=== PATIENT | female | born 1995 | race Two or more races ===

== ENCOUNTER 2017-03-06 21:29 | Emergency (ER) | payer OTHER ==
[2017-03-06 21:42] VITALS: BP 108/63; PULSE 79; TEMP 97.9; BMI 24.2
--- NOTE | 2017-03-06 21:44 | PDOC ---
Rapid Medical Evaluation Chief Complaint: Seizure Time Seen by Provider: 03/06/17 21:40 Medical Evaluation: Allergies Allergy/AdvReac Type Severity Reaction Status Date / Time No Known Allergies Allergy Verified 03/06/17 21:38 03/06/17 21:40 I have performed a brief in-person evaluation of this patient. The patient presents with a chief complaint of: Seizure Pertinent physical exam findings: none. I have ordered the following: cbc, cmp, tsh, UA, Urine preg, Urine Tox, EKG. The patient will proceed to the ED for further evaluation. Patient had first seizure 6 months ago after using Molley and Xanax recreationally. Discharge Disposition - Referrals Referrals: Govind Moreno [Primary Care Provider] - - Patient Instructions - Post Discharge Activity
--- NOTE | 2017-03-06 22:26 | PDOC ---
History of Present Illness - General History Source: Patient Exam Limitations: No Limitations - History of Present Illness Initial Comments: 03/06/17 22:56 The patient is a 21 year old female, with a significant past medical history of seizure (First one 07/2016 due to mixing Xanax and Jolynn), who presents to the emergency department with a seizure that occurred today. She reports that she was at home with her family when she had her seizure episode which involved her body and arms shaking before losing consciousness. She notes that the seizure was witnessed by her family and she was unconscious for roughly 2 minutes before awakening in a post-ictal period. EMS was contacted and arrived to the location but patient refused the ambulance. She notes that shortly afterwards she became dizzy and EMS was called once again, this time bringing the patient to the ED. She reports she usually takes 1-2 Xanax daily but during the last week she has not taken the Xanax in an attempt to cut back. She notes that she has been feeling depressed lately and doesn't want to get out of bed because of her depression. The patient denies chest pain, shortness of breath, headache and dizziness. Denies fever, chills, nausea, vomit, diarrhea and constipation. Denies dysuria, frequency, urgency and hematuria. LMP: 2 Weeks ago Allergies: None Past surgical history: None reported Social history: Cigarette use (3 days), Marijuana, xanax and Jolynn <Jani Xiao - Last Filed: 03/07/17 00:52> <Juan Kenney - Last Filed: 03/07/17 01:39> - General Chief Complaint: Seizure Stated Complaint: SEIZURE Time Seen by Provider: 03/06/17 22:21 Past History <Jani Xiao - Last Filed: 03/07/17 00:52> - Past Medical History Asthma: No Cancer: No Cardiac Disorders: No COPD: No Diabetes: No HTN: No Seizures: No Thyroid Disease: No Other medical history: Pt denies - Suicide/Smoking/Psychosocial Hx Smoking Status: No Smoking History: Never smoked Have you smoked in the past 12 months: No Number of Cigarettes Smoked Daily: 3 Information on smoking cessation initiated: No Hx Alcohol Use: No Drug/Substance Use Hx: No Substance Use Type: Marijuana, Prescribed Hx Substance Use Treatment: No <Juan Kenney - Last Filed: 03/07/17 01:39> - Past Medical History Allergies/Adverse Reactions: Allergies Allergy/AdvReac Type Severity Reaction Status Date / Time No Known Allergies Allergy Verified 03/06/17 21:38 Home Medications: Ambulatory Orders NK [No Known Home Medication] 06/24/15 Review of Systems - Review of Systems Able to Perform ROS?: Yes Comments:: 03/06/17 22:54 CONSTITUTIONAL: No fever, no chills, no fatigue EYES: No visual changes ENT: No ear pain, no sore throat CARDIOVASCULAR: No chest pain, no palpitations RESPIRATORY: No cough, no SOB GI: No abdominal pain, no nausea, no vomiting, no constipation, no diarrhea GENITOURINARY: No dysuria, no frequency, no hematuria MUSKULOSKELETAL: No backpain, no joint pain, no myalgias SKIN: No rash NEURO: (+) Seizure. No headache <Jani Xiao - Last Filed: 03/07/17 00:52> *Physical Exam - Vital Signs Last Vital Signs Temp Pulse Resp BP Pulse Ox 97.9 F 79 20 108/63 99 03/06/17 21:38 03/06/17 21:38 03/06/17 21:38 03/06/17 21:38 03/06/17 21:38 - Physical Exam Comments: 03/06/17 22:54 CONSTITUTIONAL: Well-appearing; well-nourished; in no apparent distress HEAD: Normocephalic; atraumatic EYES: PERRL; EOM intact ENMT: External appears normal; normal oropharynx NECK: Supple; non-tender; no cervical lymphadenopathy CARD: Normal S1, S2; no murmurs, rubs, or gallops RESP: Normal chest excursion with respiration; breath sounds clear and equal bilaterally; no wheezes, rhonchi, or rales ABD: Soft, non-distended; non-tender; no palpable organomegaly, no palpable hernias EXT: Normal ROM in all four extremities; non-tender to palpation; distal pulses intact SKIN: Warm, dry, no rash <Jani Xiao - Last Filed: 03/07/17 00:52> - Vital Signs Last Vital Signs Temp Pulse Resp BP Pulse Ox 97.9 F 79 20 108/63 99 03/06/17 21:38 03/06/17 21:38 03/06/17 21:38 03/06/17 21:38 03/06/17 21:38 <Juan Kenney - Last Filed: 03/07/17 01:39> ED Treatment Course - LABORATORY CBC & Chemistry Diagram: 03/06/17 21:50 03/06/17 21:50 - ADDITIONAL ORDERS Additional order review: 03/06/17 21:50 RBC 4.90 D MCV 86.9 MCHC 33.8 RDW 13.6 MPV 10.4 Neutrophils % 78.8 Lymphocytes % 15.5 D Monocytes % 4.8 D Eosinophils % 0.4 D Basophils % 0.5 D <Jani Xiao - Last Filed: 03/07/17 00:52> - LABORATORY CBC & Chemistry Diagram: 03/06/17 21:50 03/06/17 21:50 <Juan Kenney - Last Filed: 03/07/17 01:39> Medical Decision Making - Medical Decision Making 03/07/17 01:35 Patient is a well-appearing 21-year-old female with history polysubstance abuse presented to the ER after a witnessed generalized tonic-clonic seizure that terminated spontaneously. Patient initially refused transport to the ER by EMS but later presented for reevaluation. In the ER, patient is awake and alert, afebrile, with stable vital signs. Physical evaluation reveals abnormality of extraocular movements on the right with incomplete abduction of the right eye looking to the right and exotropia of the right thigh with upward gaze. No further neurological deficits were noted. CT of head showed no evidence of acute intracranial pathology. I suspect the patient's seizure may be related to acute Xanax withdrawal. Patient was advised of the need for admission and neurological evaluation but does not wish to be admitted at this time due to familial obligations. Patient understands the risk of further seizures, head injury and even . Patient will follow up with neurology and PMD. Patient also understands the risk of polysubstance abuse of prescription medication and illegal substances. <Juan Kenney - Last Filed: 03/07/17 01:39> *DC/Admit/Observation/Transfer - Attestations Scribe Attestion: 03/06/17 22:55 Documentation prepared by Jani Xiao, acting as dental assistant medical assistant for Juan Kenney MD <Jani Xiao - Last Filed: 03/07/17 00:52> - Attestations Physician Attestion: 03/07/17 01:33 The documentation was prepared by the scribe under my direct supervision. I have reviewed the documentation which correctly represents the findings, medical decision-making and critical action taken by me. <Juan Kenney - Last Filed: 03/07/17 01:39> Diagnosis at time of Disposition: Seizure, Polysubstance abuse - Discharge Dispostion Disposition: AGAINST MEDICAL ADVICE Condition at time of disposition: Fair - Referrals Referrals: Govind Moreno [Primary Care Provider] - Desmond Major MD [Staff Physician] - - Patient Instructions Printed Discharge Instructions: DI for Seizure (Not Epilepsy/Seizure Disorder) , DI for Drug Abuse and Drug Addiction Additional Instructions: Your leaving against medical advise. You're at risk of further seizures. Do not use other people's prescription medication and do not mix legal and illegal substances. Follow up with neurology. Return immediately for recurrent symptoms. - Post Discharge Activity
[2017-03-06 22:29] LABS: BASOPHIL 0.5 % (0-2.0); EOSINOPHIL 0.4 % (0-4.5); MCH 29.4 pg (25.7-33.7); MCHC 33.8 g/dl (32.0-36.0); MEAN CELL VOLUME 86.9 fl (80-96); MEAN PLT VOLUME 10.4 fl (7.5-11.1); NEUTROPHILS 78.8 % (42.8-82.8); PLATELET COUNT 235 K/MM3 (134-434); RDW 13.6 % (11.6-15.6); WHITE BLOOD COUNT 12.9 K/mm3 (4.0-10.0)
[2017-03-06 23:28] LABS: URINE APPEARANCE CLOUDY; URINE BILIRUBIN NEGATIVE (NEGATIVE); URINE BLOOD 1+ (NEGATIVE); URINE COLOR YELLOW; URINE GLUCOSE (UA) NEGATIVE (NEGATIVE); URINE KETONE NEGATIVE (NEGATIVE); URINE NITRITE NEGATIVE (NEGATIVE); URINE PROTEIN NEGATIVE (NEGATIVE); URINE UROBILINOGEN NEGATIVE mg/dL (0.2-1.0)
[2017-03-06 23:37] LABS: ALBUMIN 4.3 g/dl (3.4-5.0); ALK PHOS 60 U/L (45-117); ANION GAP 8 (8-16); BILIRUBIN,TOTAL 0.5 mg/dL (0.2-1.0); CALCIUM 9.3 mg/dL (8.5-10.1); CO2 27 mmol/L (21-32); CREATININE 0.9 mg/dL (0.55-1.02); GLUCOSE,RANDOM 87 mg/dL (74-106); SGOT/AST 13 U/L (15-37); SGPT/ALT 17 U/L (12-78); TOT PROT 7.6 g/dl (6.4-8.2)
[2017-03-06 23:38] LABS: CALCIUM OXALATE CRYSTALS MODERATE /hpf (NONE SEEN); URINE MUCUS FEW; URINE RBC 10 /hpf (0-3); URINE WBC 36 /hpf (3-5)
[2017-03-07 00:07] LABS: URINE MARIJUANA THC POSITIVE ng/ml (CUTOFF=50)
[2017-03-07 13:34] LABS: URINE LEUK ESTERASE TRACE (NEGATIVE)
== END 2017-03-07 01:45 | disposition left against medical advice (07) ==
LOC: JER 21:29
DX: G40.509 Epileptic seizures related to external causes, not intractable, without status epilepticus (principal); F19.10 Other psychoactive substance abuse, uncomplicated
CPT/HCPCS: 36415; 70450-TC; 80053; 80307; 81003; 81015; 84443; 84703; 85025; 99282-25

== ENCOUNTER 2017-03-07 20:19 | Emergency (ER) | payer OTHER ==
--- NOTE | 2017-03-07 21:02 | PDOC ---
Rapid Medical Evaluation Chief Complaint: Urinary Problem Time Seen by Provider: 03/07/17 21:00 Medical Evaluation: Allergies Allergy/AdvReac Type Severity Reaction Status Date / Time No Known Allergies Allergy Verified 03/06/17 21:38 Pt presents with complaint of : dysuria since 4 pm. denies flank pain,. no fever On brief exam: Patient alert ox3, VSS, no abdominal pain. I have ordered the following: ua, ucx, urine Pt will go to the Emergency Dept for further workup 03/07/17 21:01
[2017-03-07 21:03] VITALS: BP 128/73; PULSE 100; TEMP 97.9; BMI 24.2
--- NOTE | 2017-03-07 22:37 | PDOC ---
History of Present Illness - General Chief Complaint: Urinary Problem Stated Complaint: PAIN Time Seen by Provider: 03/07/17 21:00 History Source: Patient Exam Limitations: No Limitations - History of Present Illness Initial Comments: 03/07/17 22:46 My chief complaint: Sudden onset today of dysuria, frequency urgency and hematuria this afternoon History of present illness: Patient is a 21-year-old female with no significant medical history except for having a grand mal seizure yesterday, in the past she had a seizure 07/2016 for the first time. Patient reports that she was seen here and was told to follow up with neurologist, she signed out AMA. Patient denies any further seizure activity any headaches, fevers, abdominal discomfort flank pain, nausea or vomiting. Patient reports that on few years ago she used to get urinary tract infections has not had one for a long period of time she states. 03/07/17 22:52 Timing/Duration: intermittent Severity: moderate Associated Symptoms: reports: denies symptoms Past History - Past Medical History Allergies/Adverse Reactions: Allergies Allergy/AdvReac Type Severity Reaction Status Date / Time No Known Allergies Allergy Verified 03/06/17 21:38 Home Medications: Ambulatory Orders Nitrofurantoin Monohyd/M-Cryst [Macrobid -] 100 mg PO BID #13 capsule 03/07/17 Phenazopyridine HCl [Pyridium] 200 mg PO TID #5 tablet 03/07/17 Asthma: No Cancer: No Cardiac Disorders: No COPD: No Diabetes: No HTN: No Seizures: Yes (03/05/17 had grand mal seizure for first time) Thyroid Disease: No - Suicide/Smoking/Psychosocial Hx Smoking Status: No Smoking History: Never smoked Have you smoked in the past 12 months: No Number of Cigarettes Smoked Daily: 3 Information on smoking cessation initiated: No Hx Alcohol Use: No Drug/Substance Use Hx: No Substance Use Type: Marijuana, Prescribed Hx Substance Use Treatment: No Review of Systems - Review of Systems Able to Perform ROS?: Yes Constitutional: No: Symptoms Reported HEENTM: No: Symptoms Reported Respiratory: No: Symptoms reported Cardiac (ROS): No: Symptoms Reported ABD/GI: No: Symptoms Reported : Yes: Dysuria, Frequency, Hematuria, Urgency. No: Flank Pain, Incontinence, Pain Musculoskeletal: No: Symptoms Reported Integumentary: No: Symptoms Reported Neurological: No: Symptoms reported *Physical Exam - Vital Signs Last Vital Signs Temp Pulse Resp BP Pulse Ox 97.9 F 100 H 19 128/73 97 03/07/17 21:00 03/07/17 21:00 03/07/17 21:00 03/07/17 21:00 03/07/17 21:00 - Physical Exam General Appearance: Yes: Appropriately Dressed Respiratory/Chest: positive: Lungs Clear, Normal Breath Sounds. negative: Chest Tender, Respiratory Distress Cardiovascular: positive: Regular Rhythm, Regular Rate, S1, S2 Gastrointestinal/Abdominal: positive: Normal Bowel Sounds, Soft. negative: Tender, Organomegaly, Distended, Guarding, Rebound, Tenderness Musculoskeletal: negative: CVA Tenderness, CVA Tenderness (R), CVA Tenderness (L ) Neurologic: positive: Fully Oriented, Alert, Normal Response, Responsive Medical Decision Making - Medical Decision Making 03/07/17 22:48 Patient is a 21-year-old female with no significant medical history except for having a grand mal seizure yesterday, in the past she had a seizure 07/2016 for the first time. Patient reports that she was seen here and was told to follow up with neurologist, she signed out AMA. Patient denies any further seizure activity any headaches, fevers, abdominal discomfort flank pain, nausea or vomiting. Patient reports that on few years ago she used to get urinary tract infections has not had one for a long period of time she states. r/o urinary tract infection PLAN: u/a urine hcg urine C & S 03/07/17 22:53 03/07/17 22:53 03/07/17 23:20 Laboratory Tests 03/07/17 22:41 Urine Color Red Urine Appearance Cloudy Urine pH 6.0 Ur Specific [place] 1.034 Urine Protein 2+ H Urine Glucose (UA) Negative Urine Ketones Trace H Urine Blood 3+ H Urine Nitrite Negative Urine Bilirubin Negative Urine Urobilinogen 2.0 H Ur Leukocyte Esterase Pending Urine WBC (Auto) 914 Urine RBC (Auto) 4573 Ur Epithelial Cells Rare Calcium Oxalate Crystal Few Urine Mucus Many Urine HCG, Qual Negative macrobid 100 mg po now than bid for 7 days pyridium 200 mg po now than 1 tid for 2 days follow up with instructor of education for repeat urine testing at end of treatment *DC/Admit/Observation/Transfer Diagnosis at time of Disposition: Urinary tract infection Qualifiers: Urinary tract infection type: acute cystitis Hematuria presence: with hematuria Qualified Code(s): N30.01 - Acute cystitis with hematuria - Discharge Dispostion Disposition: HOME Condition at time of disposition: Stable - Prescriptions Prescriptions: Nitrofurantoin Monohyd/M-Cryst [Macrobid -] 100 mg PO BID #13 capsule Phenazopyridine HCl [Pyridium] 200 mg PO TID #5 tablet - Referrals Referrals: Govind Moreno [Primary Care Provider] - - Patient Instructions Additional Instructions: Drink a lot a fluids especially cranberry juice if you can purchase pure cranberry juice Return to emergency room if any fever, back pain, pelvic pain or nausea or vomiting or any other symptoms follow-up with your primary care from provider for repeat urine testing at end of treatment Patient voiced understanding of discharge instructions and all questions were answered - Post Discharge Activity
[2017-03-07 23:13] LABS: URINE APPEARANCE CLOUDY; URINE BILIRUBIN NEGATIVE (NEGATIVE); URINE BLOOD 3+ (NEGATIVE); URINE COLOR RED; URINE GLUCOSE (UA) NEGATIVE (NEGATIVE); URINE KETONE TRACE (NEGATIVE); URINE NITRITE NEGATIVE (NEGATIVE); URINE PROTEIN 2+ (NEGATIVE)
[2017-03-07] MEDS ORDERED: PHENAZOPYRIDINE HCL 100 MG TABLET (FP) PO ONE (23:16)
[2017-03-07] MEDS ORDERED: NITROFURANTOIN MACROCRYSTAL 50 MG CAPSULE (FP) ONE (23:17)
[2017-03-07] MEDS ORDERED: PHENAZOPYRIDINE HCL 100 MG TABLET (FP) ONE (23:17)
[2017-03-07 23:19] LABS: CALCIUM OXALATE CRYSTALS FEW /hpf (NONE SEEN); URINE MUCUS MANY; URINE RBC 4573 /hpf (0-3); URINE WBC 914 /hpf (3-5)
[2017-03-07] MEDS ORDERED: NITROFURANTOIN MACROCRYSTAL 50 MG CAPSULE (FP) PO SCH (23:30)
[2017-03-08 09:58] LABS: URINE LEUK ESTERASE 1+ (NEGATIVE)
== END 2017-03-07 23:23 | disposition home or self-care (01) ==
LOC: JERFT 20:19
DX: N30.01 Acute cystitis with hematuria (principal)
CPT/HCPCS: 81003; 81015; 84703; 87086; 99281-25

== ENCOUNTER 2017-07-29 17:25 | Observation (INO) | payer OTHER ==
[2017-07-29 19:08] LABS: BASO % 0.3 % (0-2.0); EOS % 0.5 % (0-4.5); HEMATOCRIT 40.6 % (32.4-45.2); HEMOGLOBIN 13.8 GM/dL (10.7-15.3); LYMPH % 18.4 % (8-40); MCH 29.7 pg (25.7-33.7); MCHC 34.1 g/dl (32.0-36.0); MEAN CELL VOLUME 87.1 fl (80-96); MEAN PLT VOLUME 9.9 fl (7.5-11.1); MONO % 4.9 % (3.8-10.2); NEUT % 75.9 % (42.8-82.8); PLATELET COUNT 234 K/MM3 (134-434); RBC 4.66 M/mm3 (3.60-5.2); RDW 14.1 % (11.6-15.6); WHITE BLOOD COUNT 10.8 K/mm3 (4.0-10.0)
--- NOTE | 2017-07-29 19:22 | PDOC ---
Attending Attestation - Resident Resident Name: Renae Caruso - ED Attending Attestation I have performed the following: I have examined & evaluated the patient, The case was reviewed & discussed with the resident, I agree w/resident's findings & plan, Exceptions are as noted - HPI HPI: 07/29/17 21:21 22y F no pmhx presents with seizure - per family, she had a witnessed tonic clonic seizure, with tongue biting, lasting approx 3 minutes with apparent post ictal period - pt states she takes street xanax daily, and took a half dose today because she 'wasnt feeling well; pt had 2 prior seizruesin the past in july and in feb, all associated with benzo usage. pt currently back at baseline normal neuro exam including normal strength, sensation, no facial droop, cardiac exam: rrr, no m/r/g pulm: clear abd soft nontender suspect benzo withdrawl will d/w neuro possible in patient rehab? - Physicial Exam PE: 07/30/17 08:29 see above - Medical Decision Making 07/30/17 01:01 pts u tox neg for benzos will keep pt for neuro consult as unclear if this seizure is related to benzo withdrawal vs primary seizure event case dw dr zuniga, agree with management Heart Score/ECG Review - ECG Impressions Comment:: 07/30/17 01:01 Twelve-lead EKG was performed and reviewed by me. There is normal sinus rhythm with a normal rate. Rate of 62 The axis is normal no st chnages suggestive of ischemia Impression: Normal twelve-lead EKG
[2017-07-29 19:36] LABS: ALBUMIN 4.3 g/dl (3.4-5.0); ALK PHOS 48 U/L (45-117); ANION GAP 6 (8-16); BILIRUBIN,TOTAL 0.4 mg/dL (0.2-1.0); BLOOD UREA NITROGEN 10 mg/dL (7-18); CHLORIDE 106 mmol/L (98-107); CO2 26 mmol/L (21-32); CREATININE 0.7 mg/dL (0.55-1.02); GLUCOSE,RANDOM 87 mg/dL (74-106); POTASSIUM 3.7 mmol/L (3.5-5.1); SGOT/AST 13 U/L (15-37); SGPT/ALT 13 U/L (12-78); SODIUM 138 mmol/L (136-145); TOT PROT 7.5 g/dl (6.4-8.2)
--- NOTE | 2017-07-29 20:04 | PDOC ---
History of Present Illness - General Chief Complaint: Seizure Stated Complaint: SEIZURE Time Seen by Provider: 07/29/17 19:05 History Source: Patient - History of Present Illness Initial Comments: 07/29/17 20:03 22 year old female presents to our ED after a witnessed seizure. Patient states she last recalls sitting on the couch watching television and next recalls being woken up by father. Patient states her father told her she had whole body shaking for approximately 2-3 minutes with some foaming at the mouth. Denies any known head trauma. Patient states this is her third seizure, her first seizure in July 2016 and a second seizure in February 2017. Patient denies any neurology evaluation. Patient notes daily Xanax use- 2 tablets, unknown dosage, however today she only took one of her pills instead of two. Patient receives her Xanax from a friend and has never been prescribed Xanax by a medical doctor. In addition to daily Xanax use, patient uses marijuana 2-3x weekly. Patient states she has used Xanax intermittently for the last year in order to deal with the depression and stress related to her romantic relationships and notes she stops Xanax while in a relationship and then starts again after she ends the relationships. Not interested in detoxification/rehab at this time. As per EMR, patient evaluated in our ED 02/2017 for seizure at which time CT head showed no acute intracranial pathology and patient discharged with neurology referral. NKDA Surgical: denies Social: daily Xanax, weekly marijuana Past History - Past Medical History Allergies/Adverse Reactions: Allergies Allergy/AdvReac Type Severity Reaction Status Date / Time No Known Allergies Allergy Verified 07/29/17 17:39 Home Medications: Ambulatory Orders NK [No Known Home Medication] 07/29/17 Asthma: No Cancer: No Cardiac Disorders: No COPD: No Diabetes: No HTN: No Seizures: Yes (03/05/17 had grand mal seizure for first time) Thyroid Disease: No - Immunization History Immunization Up to Date: Yes - Suicide/Smoking/Psychosocial Hx Smoking Status: No Smoking History: Never smoked Have you smoked in the past 12 months: No Number of Cigarettes Smoked Daily: 3 Information on smoking cessation initiated: No Hx Alcohol Use: No Drug/Substance Use Hx: No Substance Use Type: Marijuana, Prescribed Hx Substance Use Treatment: No Review of Systems - Review of Systems Constitutional: No: Chills, Fever HEENTM: No: Recent change in vision Respiratory: No: Cough, Shortness of Breath Cardiac (ROS): No: Chest Pain, Lightheadedness, Palpitations, Syncope ABD/GI: No: Constipated, Diarrhea, Nausea, Vomiting : No: Burning, Dysuria *Physical Exam - Vital Signs Last Vital Signs Temp Pulse Resp BP Pulse Ox 98.0 F 67 16 104/65 100 07/29/17 18:10 07/29/17 18:10 07/29/17 18:10 07/29/17 18:10 07/29/17 18:10 - Physical Exam Comments: 07/30/17 02:05 GENERAL: Awake, alert, and fully oriented, in no acute distress HEAD: No signs of trauma, L sided buccal oral lesion, 1 cm - non-hemmorhagic EYES: PERRLA, EOMI, sclera anicteric, conjunctiva clear ENT: Auricles normal inspection, hearing grossly normal, nares patent, oropharynx clear without exudates. Moist mucosa NECK: Nontender, no stepoffs, Normal ROM, supple, no lymphadenopathy, JVD, or masses LUNGS: Breath sounds equal, clear to auscultation bilaterally. No wheezes, and no crackles HEART: Regular rate and rhythm, normal S1 and S2, no murmurs, rubs or gallops ABDOMEN: Soft, nontender, normoactive bowel sounds. No guarding, no rebound. No masses EXTREMITIES: Normal range of motion, no edema. No clubbing or cyanosis. No cords, erythema, or tenderness NEUROLOGICAL: Cranial nerves II through XII intact. 5/5 strength and sensation in all extremities, Normal speech, normal gait, normal cerebellar function SKIN: Warm, Dry, normal turgor, no rashes or lesions noted. ED Treatment Course - LABORATORY CBC & Chemistry Diagram: 07/29/17 17:58 07/29/17 17:58 - ADDITIONAL ORDERS Additional order review: Laboratory Results 07/29/17 17:58 Sodium 138 Potassium 3.7 Chloride 106 Carbon Dioxide 26 Anion Gap 6 L BUN 10 Creatinine 0.7 Creat Clearance w eGFR > 60 Random Glucose 87 Calcium 9.0 Total Bilirubin 0.4 AST 13 L ALT 13 Alkaline Phosphatase 48 Total Protein 7.5 Albumin 4.3 07/29/17 17:58 RBC 4.66 MCV 87.1 MCHC 34.1 RDW 14.1 MPV 9.9 Neutrophils % 75.9 Lymphocytes % 18.4 Monocytes % 4.9 Eosinophils % 0.5 Basophils % 0.3 Medical Decision Making - Medical Decision Making 07/29/17 20:04 22 year old well appearing female with a PMH of polysubstance abuse presents to our ED after witnessed generalized tonic-clonic seizure. Tachycardic @ 101, remainder of VS unremarkable. Neurologically intact with no focal neurologic deficits on physical exam. Patient notes h/o decreased Xanax consumption prior to seizures. Daily Xanax use, not interested in detoxification/rehabilitation at this time. As patient has h/o CT head in 02/2017 negative for acute intracranial pathology, will withhold CT head at this time as clinical suspicion for seizure 2/2 to benzo withdrawal. Urine Tox, basic labs pending. 07/29/17 22:27 Case d/w Dr. Gomez (Neurology) will evaluate patient tomorrow. CBC, CMP unremarkable. Urine toxicology pending. 07/29/17 23:11 Urine toxicology positive for THC, negative for benzos. Will obtain CT head as no clear association between d/c Benzos and seizures. Case d/w Dr. Osborne - will admit patient for obs telemetry. Patient counseled on POC. Will continue to monitor while in ED. *DC/Admit/Observation/Transfer Diagnosis at time of Disposition: Seizure - Discharge Dispostion Condition at time of disposition: Fair Admit: Yes - Referrals - Patient Instructions - Post Discharge Activity
[2017-07-29 21:18] LABS: URINE APPEARANCE CLEAR; URINE BILIRUBIN NEGATIVE (<2.0 mg/dL); URINE BLOOD 1+ (NEGATIVE); URINE COLOR LTYELLOW; URINE GLUCOSE (UA) NEGATIVE (NEGATIVE); URINE KETONE 1+ (NEGATIVE); URINE LEUK ESTERASE NEGATIVE (NEGATIVE); URINE NITRITE NEGATIVE (NEGATIVE); URINE PROTEIN NEGATIVE (NEGATIVE); URINE UROBILINOGEN NEGATIVE mg/dL (0.2-1.0)
[2017-07-29 21:27] LABS: HCG,QUALITATIVE URINE NEGATIVE
[2017-07-29 21:31] LABS: EPI CELLS RARE /HPF (FEW); URINE MUCUS RARE
[2017-07-29 22:48] LABS: URINE AMPHETAMINES NEGATIVE ng/ml (CUTOFF=500)
[2017-07-29 22:49] LABS: COCAINE, UR NEGATIVE ng/ml (CUTOFF=300); METHADONE, UR NEGATIVE ng/ml (CUTOFF=300); OPIATES, URI NEGATIVE ng/ml (CUTOFF=300); PHENCYCLIDINE,URINE NEGATIVE ng/ml (CUTOFF=25); URINE BARBITURATES NEGATIVE ng/ml (CUTOFF=200); URINE BENZODIAZEPINES NEGATIVE ng/ml (CUTOFF=200)
--- NOTE | 2017-07-29 23:17 | PN ---
Teaching Attending Note Name of Resident: Adriana Morales ATTENDING PHYSICIAN STATEMENT I saw and evaluated the patient. I reviewed the resident's note and discussed the case with the resident. I agree with the resident's findings and plan as documented. SUBJECTIVE: 22 F with hx. of polysubstance abuse (Marijuana/Xanax) who presents after a witnessed tonic- clonic seizure by her father. Also notes bitten tongue and 3 minute of a post-ictal state. She gets her Xanax off the street and took only half her usual dose today. She had around a 3 minute post-ictal period. OBJECTIVE: Physical: VS: Vital Signs Period Temp Pulse Resp BP Sys/Mason Pulse Ox Last 24 Hr 98.0 F-98.7 F 65-101 16-20 99-107/50-74 98-100 GEN: NAD, Resting in bed, AA0X3 HEENT: NCAT, PERRL, Throat without erythema or exudates CARD: RRR S1, S2 RESP: CTAB ABD: BSx4, NTD To palpation EXT: - C/C/E CBCD WBC 10.8 K/mm3 (4.0-10.0) H 07/29/17 17:58 RBC 4.66 M/mm3 (3.60-5.2) 07/29/17 17:58 Hgb 13.8 GM/dL (10.7-15.3) 07/29/17 17:58 Hct 40.6 % (32.4-45.2) 07/29/17 17:58 MCV 87.1 fl (80-96) 07/29/17 17:58 MCHC 34.1 g/dl (32.0-36.0) 07/29/17 17:58 RDW 14.1 % (11.6-15.6) 07/29/17 17:58 Plt Count 234 K/MM3 (134-434) 07/29/17 17:58 MPV 9.9 fl (7.5-11.1) 07/29/17 17:58 CMP Sodium 138 mmol/L (136-145) 07/29/17 17:58 Potassium 3.7 mmol/L (3.5-5.1) 07/29/17 17:58 Chloride 106 mmol/L (98-107) 07/29/17 17:58 Carbon Dioxide 26 mmol/L (21-32) 07/29/17 17:58 Anion Gap 6 (8-16) L 07/29/17 17:58 BUN 10 mg/dL (7-18) 07/29/17 17:58 Creatinine 0.7 mg/dL (0.55-1.02) 07/29/17 17:58 Creat Clearance w eGFR > 60 (>60) 07/29/17 17:58 Random Glucose 87 mg/dL (74-106) 07/29/17 17:58 Calcium 9.0 mg/dL (8.5-10.1) 07/29/17 17:58 Total Bilirubin 0.4 mg/dL (0.2-1.0) 07/29/17 17:58 AST 13 U/L (15-37) L 07/29/17 17:58 ALT 13 U/L (12-78) 07/29/17 17:58 Alkaline Phosphatase 48 U/L (45-117) 07/29/17 17:58 Total Protein 7.5 g/dl (6.4-8.2) 07/29/17 17:58 Albumin 4.3 g/dl (3.4-5.0) 07/29/17 17:58 CT HEAD: PENDING EKG:NSR CXR: PENDING ASSESSMENT AND PLAN: 22 F who presents after witness seizure 1.) Seizure - Most likley due to BZD withdrawl - Detox consult - FU CT HEAD - Neuro Consult - TSH - Seizure Percautions 2.) Dvt Ppx - SCDs Place in Obs
--- NOTE | 2017-07-30 00:18 | MSN ---
Admitting History and Physical - Admission Chief Complaint: seizure History of Present Illness: Faviola Aleman is a 22 year old female with no significant past medical history who presents to the hospital after having a witnessed seizure in her home. Patient had 2 prior episodes with the last episode in February 2017. Patient stated that she takes 2 Xanax bars daily but this morning she only took 1. Patient stated that this morning she felt feverish which is similar to how she felt last time she had a seizure and decided to stay home. The episode was witnessed by the father. Patient had bit her cheek and had tonic-clonic movements for 3 minutes. Patient did not have any bowel or bladder incontinence during the episode. Patient denied any inciting events prior to the seizure, lightheadedness, palpitations, shortness of breath, dizziness. Patient currently endorses a headache. Denies current cp, sob, abd pain, dysuria, urgency, frequency, fevers, chills, n/v/c/d, dizziness, lightheadedness. History Source: Patient Limitations to Obtaining History: No Limitations - Past Medical History [employer]IST: Yes: Seizure (2 prior) ...: No - Past Surgical History Past Surgical History: Yes: None - Smoking History Smoking history: Never smoked Have you smoked in the past 12 months: No - Alcohol/Substance Use Hx Alcohol Use: No History of Substance Use: reports: Marijuana (3 blunts/day), Tranquilizers ( Xanax daily 2 bars) - Social History ADL: Independent Occupation: unemployed History of Recent Travel: No Home Medications - Allergies Allergies/Adverse Reactions: Allergies Allergy/AdvReac Type Severity Reaction Status Date / Time No Known Allergies Allergy Verified 07/29/17 17:39 - Home Medications Home Medications: Ambulatory Orders NK [No Known Home Medication] 07/29/17 Family Disease History - Family Disease History Family Disease History: Diabetes: Father Review of Systems - Review of Systems Constitutional: reports: No Symptoms Eyes: reports: No Symptoms HENT: reports: No Symptoms Neck: reports: No Symptoms Cardiovascular: reports: No Symptoms Respiratory: reports: No Symptoms Gastrointestinal: reports: No Symptoms Genitourinary: reports: No Symptoms Breasts: reports: No Symptoms Reported Musculoskeletal: reports: No Symptoms Integumentary: reports: No Symptoms Neurological: reports: Headache Endocrine: reports: No Symptoms Hematology/Lymphatic: reports: No Symptoms Psychiatric: reports: No Symptoms Physical Examination Vital Signs: Vital Signs Temperature 98.0 F 07/29/17 18:10 Pulse Rate 65 07/29/17 23:03 Respiratory Rate 18 07/29/17 23:03 Blood Pressure 99/50 07/29/17 23:03 O2 Sat by Pulse Oximetry (%) 99 07/29/17 23:03 Constitutional: Yes: Well Nourished, No Distress, Calm Eyes: Yes: WNL, Conjunctiva Clear, EOM Intact HENT: Yes: Normocephalic, Other (laceration in the R cheek due to biting from seizure episode) Neck: Yes: WNL, Supple, Trachea Midline Cardiovascular: Yes: WNL, Regular Rate and Rhythm, S1, S2 Respiratory: Yes: WNL, Regular, CTA Bilaterally Gastrointestinal: Yes: WNL, Normal Bowel Sounds, Soft Renal/: No: Musculoskeletal: Yes: WNL Extremities: Yes: WNL Edema: No Peripheral Pulses WNL: Yes Peripheral Pulses: Left Radial: 2+, Right Radial: 2+, Left Doralis Pedis: 2+, Right Dorsalis Pedis: 2+ Integumentary: Yes: WNL Neurological: Yes: WNL, Alert, Oriented, Cran Nerves II-XII Intact. No: Loss of Sensation, Numbness, Tingling ...Motor Strength: WNL Psychiatric: Yes: WNL, Alert, Oriented Labs: CBC, BMP 07/29/17 17:58 07/29/17 17:58 Problem List - Problems (1) Polysubstance abuse Code(s): F19.10 - OTHER PSYCHOACTIVE SUBSTANCE ABUSE, UNCOMPLICATED (2) Seizure Code(s): R56.9 - UNSPECIFIED CONVULSIONS Assessment/Plan Patient is a 22y/o female with no significant past medical history who presented after having a witnessed tonic-clonic seizure. Seizure - provoked due to benzodiazepine withdrawl vs. epilepsy - urine toxicology only positive for THC - Head CT ordered - Sodium, liver enzymes within normal limits - Mg, B12, folate, Phosphorus, TSH ordered - Neuro assessment q2h, seizure protocol - EKG ordered - Neurology consulted, Dr. Gomez, recs appreciated F/E/N - regular diet - electrolytes within normal limits - replete as necessary DVT PPx - early ambulation Disposition - observation admission
--- NOTE | 2017-07-30 00:31 | HP ---
CHIEF COMPLAINT: seizure HISTORY OF PRESENT ILLNESS: Patient is a 22 yo F with a history of polysubstance abuse (marijuana, xanax) presented to the ED after a witnessed tonic-clonic seizure by her father lasting 2-3 minutes. Patient said she bit the inside of her cheek. She mentions feeling warm this morning before having the seizure. She does not remember having a seizure. Patient says she was in post-ictal state for about 3 minutes. Patient usually takes xanax twice daily and today only took half her dose. Patient has had 2 similar episodes in the past year. She said she was withdrawing from xanax the previous 2 times she had the seizures (last seizure 02/22). Patient denies chest pain, sob, nausea, vomiting, loss of bladder control, dizziness, lightheadedness. Recent Travel: denies PAST MEDICAL HISTORY: none PAST SURGICAL HISTORY: n/a Social History: Smoking: denied Alcohol: denied Drugs: 3 blunts of marijuana a day Family History: Allergies No Known Allergies Allergy (Verified 07/29/17 17:39) HOME MEDICATIONS: Home Medications Medication Instructions Recorded NK [No Known Home Medication] 07/29/17 REVIEW OF SYSTEMS CONSTITUTIONAL: Absent: fever, chills, diaphoresis, generalized weakness, malaise, loss of appetite, weight change HEENT: Absent: rhinorrhea, nasal congestion, throat pain, throat swelling, difficulty swallowing, mouth swelling, ear pain, eye pain, visual changes CARDIOVASCULAR: Absent: chest pain, syncope, palpitations, irregular heart rate, lightheadedness , peripheral edema RESPIRATORY: Absent: cough, shortness of breath, dyspnea with exertion, orthopnea, wheezing, stridor, hemoptysis GASTROINTESTINAL: Absent: abdominal pain, abdominal distension, nausea, vomiting, diarrhea, constipation, melena, hematochezia GENITOURINARY: Absent: dysuria, frequency, urgency, hesitancy, hematuria, flank pain, genital pain MUSCULOSKELETAL: Absent: myalgia, arthralgia, joint swelling, back pain, neck pain SKIN: Absent: rash, itching, pallor HEMATOLOGIC/IMMUNOLOGIC: Absent: easy bleeding, easy bruising, lymphadenopathy, frequent infections ENDOCRINE: Absent: unexplained weight gain, unexplained weight loss, heat intolerance, cold intolerance NEUROLOGIC: headache, seizure Absent: focal weakness or paresthesias, dizziness, unsteady gait, mental status changes, bladder or bowel incontinence PHYSICAL EXAMINATION Vital Signs - 24 hr 07/29/17 07/29/17 07/29/17 17:39 18:10 23:03 Temperature 98.7 F 98.0 F Pulse Rate 101 H Pulse Rate [ 67 65 Right] Respiratory 20 16 18 Rate Blood Pressure 107/74 Blood Pressure 104/65 99/50 [Right Arm] O2 Sat by Pulse 98 100 99 Oximetry (%) GENERAL: a/o x 3, laying in bed comfortably on her phone HEAD: Normal with no signs of trauma. EYES: Pupils equal, round and reactive to light, extraocular movements intact, sclera anicteric, conjunctiva clear. No lid lag. EARS, NOSE, THROAT: bleeding right cheek inside mouth NECK: Normal range of motion, supple without lymphadenopathy, JVD, or masses. LUNGS: Breath sounds equal, clear to auscultation bilaterally. No wheezes, and no crackles. No accessory muscle use. HEART: Regular rate and rhythm, normal S1 and S2 without murmur, rub or gallop. ABDOMEN: Soft, nontender, not distended, normoactive bowel sounds, no guarding, no rebound, no masses. MUSCULOSKELETAL: Normal range of motion at all joints. No bony deformities or tenderness. No CVA tenderness. UPPER EXTREMITIES: 2+ pulses, warm, well-perfused. No cyanosis. No clubbing. No peripheral edema. LOWER EXTREMITIES: 2+ pulses, warm, well-perfused. No calf tenderness. No peripheral edema. NEUROLOGICAL: Cranial nerves II-XII intact. Normal speech. Normal gait. PSYCHIATRIC: Cooperative. Good eye contact SKIN: Warm, dry, normal turgor, no rashes or lesions noted, normal capillary refill. Laboratory Results - last 24 hr 07/29/17 07/29/17 07/29/17 17:58 17:58 17:58 WBC 10.8 H RBC 4.66 Hgb 13.8 Hct 40.6 MCV 87.1 MCH 29.7 MCHC 34.1 RDW 14.1 Plt Count 234 MPV 9.9 Neutrophils % 75.9 Lymphocytes % 18.4 Monocytes % 4.9 Eosinophils % 0.5 Basophils % 0.3 Sodium 138 Potassium 3.7 Chloride 106 Carbon Dioxide 26 Anion Gap 6 L BUN 10 Creatinine 0.7 Creat Clearance w eGFR > 60 Random Glucose 87 Calcium 9.0 Total Bilirubin 0.4 AST 13 L ALT 13 Alkaline Phosphatase 48 Total Protein 7.5 Albumin 4.3 Serum , Qual Negative Urine Color Urine Appearance Urine pH Ur Specific [place] Urine Protein Urine Glucose (UA) Urine Ketones Urine Blood Urine Nitrite Urine Bilirubin Urine Urobilinogen Ur Leukocyte Esterase Urine WBC (Auto) Urine RBC (Auto) Ur Epithelial Cells Urine Mucus Urine HCG, Qual Opiates Screen Methadone Screen Barbiturate Screen Phencyclidine Screen Ur Amphetamines Screen MDMA (Ecstasy) Screen Benzodiazepines Screen Cocaine Screen U Marijuana (THC) Screen 07/29/17 07/29/17 20:35 22:11 WBC RBC Hgb Hct MCV MCH MCHC RDW Plt Count MPV Neutrophils % Lymphocytes % Monocytes % Eosinophils % Basophils % Sodium Potassium Chloride Carbon Dioxide Anion Gap BUN Creatinine Creat Clearance w eGFR Random Glucose Calcium Total Bilirubin AST ALT Alkaline Phosphatase Total Protein Albumin Serum , Qual Urine Color Ltyellow Urine Appearance Clear Urine pH 6.0 Ur Specific [place] 1.023 Urine Protein Negative Urine Glucose (UA) Negative Urine Ketones 1+ H Urine Blood 1+ H Urine Nitrite Negative Urine Bilirubin Negative Urine Urobilinogen Negative Ur Leukocyte Esterase Negative Urine WBC (Auto) <1 Urine RBC (Auto) 4 Ur Epithelial Cells Rare Urine Mucus Rare Urine HCG, Qual Negative Opiates Screen Negative Methadone Screen Negative Barbiturate Screen Negative Phencyclidine Screen Negative Ur Amphetamines Screen Negative MDMA (Ecstasy) Screen Negative Benzodiazepines Screen Negative Cocaine Screen Negative U Marijuana (THC) Screen Positive ASSESSMENT/PLAN: 22 yo F with a history of polysubstance abuse (marijuana, xanax) presented to the ED after a witnessed tonic-clonic seizure #Seizure -likely withdrawal from benzo -neuro checks q2 hours -CT head -Neuro consulted -TSH, b12, folate -no AED at this time until further reccs from neuro #Benzo abuse -refusing detox #FEN -No iv fluids -WNL -Regular diet #PPx -EAB Visit type - Emergency Visit Emergency Visit: Yes ED Registration Date: 07/29/17 Care time: The patient presented to the Emergency Department on the above date and was hospitalized for further evaluation of their emergent condition. - New Patient This patient is new to me today: Yes Date on this admission: 07/30/17 - Critical Care Critical Care patient: No Hospitalist Screening - Colonoscopy Questionnaire Colonoscopy Questionnaire: Colonoscopy Questionnaire - Patient: 50 - 75 years old and never had a screening colonoscopy: Unknown History of colon or rectal polyps, or CA: Unknown History of IBD, Crohn's disease or UC: Unknown History of abdominal radiation therapy as a child: Unknown - Relative: 1 with colon or rectal CA, or polyps at age 60 or younger: Unknown Colon or rectal CA diagnosed at age 45 or younger: Unknown Multiple relatives with colon or rectal CA: Unknown - Outcome: Screening Result: Negative Screen
[2017-07-30 06:26] VITALS: BMI 21.1
[2017-07-30 06:47] LABS: HEMATOCRIT 38.5 % (32.4-45.2); HEMOGLOBIN 13.2 GM/dL (10.7-15.3); MCHC 34.2 g/dl (32.0-36.0); MEAN CELL VOLUME 87.6 fl (80-96); MEAN PLT VOLUME 10.4 fl (7.5-11.1); PLATELET COUNT 218 K/MM3 (134-434); RDW 14.1 % (11.6-15.6); WHITE BLOOD COUNT 9.9 K/mm3 (4.0-10.0)
[2017-07-30 07:14] LABS: ALBUMIN 3.6 g/dl (3.4-5.0); ANION GAP 6 (8-16); BLOOD UREA NITROGEN 12 mg/dL (7-18); CALCIUM 8.4 mg/dL (8.5-10.1); CHLORIDE 107 mmol/L (98-107); CO2 25 mmol/L (21-32); CREATININE 0.7 mg/dL (0.55-1.02); GLUCOSE,RANDOM 85 mg/dL (74-106); MAGNESIUM 2.2 mg/dL (1.8-2.4); POTASSIUM 3.8 mmol/L (3.5-5.1); SGOT/AST 13 U/L (15-37); SGPT/ALT 12 U/L (12-78); SODIUM 138 mmol/L (136-145)
[2017-07-30 07:24] LABS: ALK PHOS 42 U/L (45-117); BILIRUBIN,TOTAL 0.6 mg/dL (0.2-1.0); TOT PROT 6.6 g/dl (6.4-8.2)
[2017-07-30] MEDS ORDERED: chlordiazePOXIDE HCL 25 MG CAPSULE PO PRN (07:35)
[2017-07-30] MEDS ORDERED: chlordiazePOXIDE HCL 25 MG CAPSULE PO ONE (07:35)
--- NOTE | 2017-07-30 09:39 | CONSULT ---
Consult - text type - Consultation Consultation Note: Neurology CHIEF COMPLAINT: seizure HISTORY OF PRESENT ILLNESS: Patient is a 22 yo F with a history of polysubstance abuse (marijuana, xanax) presented to the ED after a witnessed tonic-clonic seizure by her father lasting 2-3 minutes. REportedly, this is her third event. All of them have been in the context of benzo withdrawal according to the patient. Utox did not show benzo though patient reports last use was one day prior. Had an extensive conversation about not mixing toxic substances with medications (MJ, other opioids). Believes she has Xanax issue under control and can stop taking it but each time she ends up going back on it. Reported recent "heartbreak" as trigger and informed her other stressors may trigger recurrences and encouraged at least consult with psych and/or wildlife removal specialist. Seems to be in denial of her possible addiction. Neurologically, does not seem to be organic seizure disorder. Would not want to expose her to toxicity of AEDS as her events are triggered by medication abuse/withdrawal. Focus this underlying etiology would be most effective. Further, AEDS not likely to prevent withdrawal seizures. CT head reviewed and without acute changes. Recent Travel: denies PAST MEDICAL HISTORY: none PAST SURGICAL HISTORY: n/a Social History: Smoking: denied Alcohol: denied Drugs: 3 blunts of marijuana a day Family History: Allergies No Known Allergies Allergy (Verified 07/29/17 17:39) HOME MEDICATIONS: Home Medications Medication Instructions Recorded NK [No Known Home Medication] 07/29/17 REVIEW OF SYSTEMS CONSTITUTIONAL: Absent: fever, chills, diaphoresis, generalized weakness, malaise, loss of appetite, weight change HEENT: Absent: rhinorrhea, nasal congestion, throat pain, throat swelling, difficulty swallowing, mouth swelling, ear pain, eye pain, visual changes CARDIOVASCULAR: Absent: chest pain, syncope, palpitations, irregular heart rate, lightheadedness , peripheral edema RESPIRATORY: Absent: cough, shortness of breath, dyspnea with exertion, orthopnea, wheezing, stridor, hemoptysis GASTROINTESTINAL: Absent: abdominal pain, abdominal distension, nausea, vomiting, diarrhea, constipation, melena, hematochezia GENITOURINARY: Absent: dysuria, frequency, urgency, hesitancy, hematuria, flank pain, genital pain MUSCULOSKELETAL: Absent: myalgia, arthralgia, joint swelling, back pain, neck pain SKIN: Absent: rash, itching, pallor HEMATOLOGIC/IMMUNOLOGIC: Absent: easy bleeding, easy bruising, lymphadenopathy, frequent infections ENDOCRINE: Absent: unexplained weight gain, unexplained weight loss, heat intolerance, cold intolerance NEUROLOGIC: headache, seizure Absent: focal weakness or paresthesias, dizziness, unsteady gait, mental status changes, bladder or bowel incontinence PHYSICAL EXAMINATION Vital Signs Temperature 98.2 F 07/30/17 05:46 Pulse Rate 81 07/30/17 05:46 Respiratory Rate 20 07/30/17 05:46 Blood Pressure 99/59 07/30/17 05:46 O2 Sat by Pulse Oximetry (%) 99 07/30/17 02:20 GENERAL: a/o x 3, laying in bed comfortably on her phone HEAD: Normal with no signs of trauma. EYES: Pupils equal, round and reactive to light, extraocular movements intact, sclera anicteric, conjunctiva clear. No lid lag. EARS, NOSE, THROAT: bleeding right cheek inside mouth NECK: Normal range of motion, supple without lymphadenopathy, JVD, or masses. LUNGS: Breath sounds equal, clear to auscultation bilaterally. No wheezes, and no crackles. No accessory muscle use. HEART: Regular rate and rhythm, normal S1 and S2 without murmur, rub or gallop. ABDOMEN: Soft, nontender, not distended, normoactive bowel sounds, no guarding, no rebound, no masses. MUSCULOSKELETAL: Normal range of motion at all joints. No bony deformities or tenderness. No CVA tenderness. UPPER EXTREMITIES: 2+ pulses, warm, well-perfused. No cyanosis. No clubbing. No peripheral edema. LOWER EXTREMITIES: 2+ pulses, warm, well-perfused. No calf tenderness. No peripheral edema. NEUROLOGICAL: Cranial nerves II-XII intact. Normal speech. Normal gait. PSYCHIATRIC: Cooperative. Good eye contact SKIN: Warm, dry, normal turgor, no rashes or lesions noted, normal capillary refill. Laboratory Results - last 24 hr 07/29/17 07/29/17 07/29/17 17:58 17:58 17:58 WBC 10.8 H RBC 4.66 Hgb 13.8 Hct 40.6 MCV 87.1 MCH 29.7 MCHC 34.1 RDW 14.1 Plt Count 234 MPV 9.9 Neutrophils % 75.9 Lymphocytes % 18.4 Monocytes % 4.9 Eosinophils % 0.5 Basophils % 0.3 Sodium 138 Potassium 3.7 Chloride 106 Carbon Dioxide 26 Anion Gap 6 L BUN 10 Creatinine 0.7 Creat Clearance w eGFR > 60 Random Glucose 87 Calcium 9.0 Total Bilirubin 0.4 AST 13 L ALT 13 Alkaline Phosphatase 48 Total Protein 7.5 Albumin 4.3 Serum , Qual Negative Urine Color Urine Appearance Urine pH Ur Specific [place] Urine Protein Urine Glucose (UA) Urine Ketones Urine Blood Urine Nitrite Urine Bilirubin Urine Urobilinogen Ur Leukocyte Esterase Urine WBC (Auto) Urine RBC (Auto) Ur Epithelial Cells Urine Mucus Urine HCG, Qual Opiates Screen Methadone Screen Barbiturate Screen Phencyclidine Screen Ur Amphetamines Screen MDMA (Ecstasy) Screen Benzodiazepines Screen Cocaine Screen U Marijuana (THC) Screen 07/29/17 07/29/17 20:35 22:11 WBC RBC Hgb Hct MCV MCH MCHC RDW Plt Count MPV Neutrophils % Lymphocytes % Monocytes % Eosinophils % Basophils % Sodium Potassium Chloride Carbon Dioxide Anion Gap BUN Creatinine Creat Clearance w eGFR Random Glucose Calcium Total Bilirubin AST ALT Alkaline Phosphatase Total Protein Albumin Serum , Qual Urine Color Ltyellow Urine Appearance Clear Urine pH 6.0 Ur Specific [place] 1.023 Urine Protein Negative Urine Glucose (UA) Negative Urine Ketones 1+ H Urine Blood 1+ H Urine Nitrite Negative Urine Bilirubin Negative Urine Urobilinogen Negative Ur Leukocyte Esterase Negative Urine WBC (Auto) <1 Urine RBC (Auto) 4 Ur Epithelial Cells Rare Urine Mucus Rare Urine HCG, Qual Negative Opiates Screen Negative Methadone Screen Negative Barbiturate Screen Negative Phencyclidine Screen Negative Ur Amphetamines Screen Negative MDMA (Ecstasy) Screen Negative Benzodiazepines Screen Negative Cocaine Screen Negative U Marijuana (THC) Screen Positive CT head reviewed ASSESSMENT/PLAN: 22 yo F with a history of polysubstance abuse (marijuana, xanax) presented to the ED after a witnessed tonic-clonic seizure by her father lasting 2-3 minutes. REportedly, this is her third event. All of them have been in the context of benzo withdrawal according to the patient. Utox did not show benzo though patient reports last use was one day prior. Had an extensive conversation about not mixing toxic substances with medications (MJ, other opioids). Believes she has Xanax issue under control and can stop taking it but each time she ends up going back on it. Reported recent "heartbreak" as trigger and informed her other stressors may trigger recurrences and encouraged at least consult with psych and/or wildlife removal specialist. Seems to be in denial of her possible addiction. Neurologically, does not seem to be organic seizure disorder. Would not want to expose her to toxicity of AEDS as her events are triggered by medication abuse/withdrawal. Focus this underlying etiology would be most effective. Further, AEDS not likely to prevent withdrawal seizures. Continue medical optimization and recommendations as above. Visit type - Emergency Visit Emergency Visit: Yes ED Registration Date: 07/29/17 Care time: The patient presented to the Emergency Department on the above date and was hospitalized for further evaluation of their emergent condition. - New Patient This patient is new to me today: Yes Date on this admission: 07/30/17 - Critical Care Critical Care patient: No Hospitalist Screening - Colonoscopy Questionnaire Colonoscopy Questionnaire: Colonoscopy Questionnaire - Patient: 50 - 75 years old and never had a screening colonoscopy: Unknown History of colon or rectal polyps, or CA: Unknown History of IBD, Crohn's disease or UC: Unknown History of abdominal radiation therapy as a child: Unknown - Relative: 1 with colon or rectal CA, or polyps at age 60 or younger: Unknown Colon or rectal CA diagnosed at age 45 or younger: Unknown Multiple relatives with colon or rectal CA: Unknown - Outcome: Screening Result: Negative Screen
--- NOTE | 2017-07-30 10:15 | EKG ---
Test Reason : Blood Pressure : / mmHG Vent. Rate : 066 BPM Atrial Rate : 066 BPM P-R Int : 122 ms QRS Dur : 088 ms QT Int : 398 ms P-R-T Axes : 071 083 058 degrees QTc Int : 417 ms NORMAL SINUS RHYTHM WITH SINUS ARRHYTHMIA NORMAL ECG WHEN COMPARED WITH ECG OF 24-JUN-2015 12:48, VENT. RATE HAS DECREASED BY 48 BPM T WAVE INVERSION NO LONGER EVIDENT IN INFERIOR LEADS Confirmed by MD AUDIE, KIRSTEN ([id number]) on 07/30/2017 10:14:47 AM Referred By: Confirmed By:KIRSTEN BRONSON MD
[2017-07-30] MEDS ORDERED: chlordiazePOXIDE HCL 25 MG CAPSULE PO SCH (13:15)
--- NOTE | 2017-07-30 14:20 | PN ---
Physical Exam: SUBJECTIVE: Patient seen and examined No acute events overnight. Patient feels better today. Has had no more seizures. Denies weakness, numbness, tingling, neurological symptoms. OBJECTIVE: Vital Signs Period Temp Pulse Resp BP Sys/Mason Pulse Ox Last 24 Hr 98 F-98.7 F 65-101 16-20 99-115/50-74 98-100 GENERAL: The patient is awake, alert, and fully oriented, in no acute distress. HEAD: Normal with no signs of trauma. EYES: PERRL, extraocular movements intact, sclera anicteric, conjunctiva clear. No ptosis. ENT: Oropharynx clear without exudates, moist mucous membranes. NECK: Trachea midline, full range of motion, supple. LUNGS: Breath sounds equal, clear to auscultation bilaterally, no wheezes, no crackles, no accessory muscle use. HEART: Regular rate and rhythm, S1, S2 without murmur, rub or gallop. ABDOMEN: Soft, nontender, nondistended, normoactive bowel sounds, no guarding, no rebound, no hepatosplenomegaly, no masses. EXTREMITIES: 2+ pulses, warm, well-perfused, no edema. NEUROLOGICAL: Cranial nerves II through XII grossly intact. Normal speech, 5/5 strength proximally and distally, 2+ reflexes, sensation intact PSYCH: Normal mood, normal affect. SKIN: Warm, dry, normal turgor, no rashes or lesions noted Laboratory Results - last 24 hr 07/29/17 07/29/17 07/29/17 17:58 17:58 17:58 WBC 10.8 H RBC 4.66 Hgb 13.8 Hct 40.6 MCV 87.1 MCH 29.7 MCHC 34.1 RDW 14.1 Plt Count 234 MPV 9.9 Neutrophils % 75.9 Lymphocytes % 18.4 Monocytes % 4.9 Eosinophils % 0.5 Basophils % 0.3 Sodium 138 Potassium 3.7 Chloride 106 Carbon Dioxide 26 Anion Gap 6 L BUN 10 Creatinine 0.7 Creat Clearance w eGFR > 60 Random Glucose 87 Calcium 9.0 Phosphorus Magnesium Total Bilirubin 0.4 AST 13 L ALT 13 Alkaline Phosphatase 48 Total Protein 7.5 Albumin 4.3 Vitamin B12 Serum Folate TSH Serum , Qual Negative Urine Color Urine Appearance Urine pH Ur Specific [place] Urine Protein Urine Glucose (UA) Urine Ketones Urine Blood Urine Nitrite Urine Bilirubin Urine Urobilinogen Ur Leukocyte Esterase Urine WBC (Auto) Urine RBC (Auto) Ur Epithelial Cells Urine Mucus Urine HCG, Qual Opiates Screen Methadone Screen Barbiturate Screen Phencyclidine Screen Ur Amphetamines Screen MDMA (Ecstasy) Screen Benzodiazepines Screen Cocaine Screen U Marijuana (THC) Screen HIV 1&2 Antibody Screen HIV P24 Antigen 07/29/17 07/29/17 07/30/17 20:35 22:11 05:35 WBC 9.9 RBC 4.40 Hgb 13.2 Hct 38.5 MCV 87.6 MCH 30.0 MCHC 34.2 RDW 14.1 Plt Count 218 MPV 10.4 Neutrophils % Lymphocytes % Monocytes % Eosinophils % Basophils % Sodium Potassium Chloride Carbon Dioxide Anion Gap BUN Creatinine Creat Clearance w eGFR Random Glucose Calcium Phosphorus Magnesium Total Bilirubin AST ALT Alkaline Phosphatase Total Protein Albumin Vitamin B12 Serum Folate TSH Serum , Qual Urine Color Ltyellow Urine Appearance Clear Urine pH 6.0 Ur Specific [place] 1.023 Urine Protein Negative Urine Glucose (UA) Negative Urine Ketones 1+ H Urine Blood 1+ H Urine Nitrite Negative Urine Bilirubin Negative Urine Urobilinogen Negative Ur Leukocyte Esterase Negative Urine WBC (Auto) <1 Urine RBC (Auto) 4 Ur Epithelial Cells Rare Urine Mucus Rare Urine HCG, Qual Negative Opiates Screen Negative Methadone Screen Negative Barbiturate Screen Negative Phencyclidine Screen Negative Ur Amphetamines Screen Negative MDMA (Ecstasy) Screen Negative Benzodiazepines Screen Negative Cocaine Screen Negative U Marijuana (THC) Screen Positive HIV 1&2 Antibody Screen HIV P24 Antigen 07/30/17 07/30/17 07/30/17 05:35 05:35 07:50 WBC RBC Hgb Hct MCV MCH MCHC RDW Plt Count MPV Neutrophils % Lymphocytes % Monocytes % Eosinophils % Basophils % Sodium 138 Potassium 3.8 Chloride 107 Carbon Dioxide 25 Anion Gap 6 L BUN 12 Creatinine 0.7 Creat Clearance w eGFR > 60 Random Glucose 85 Calcium 8.4 L Phosphorus 4.0 Magnesium 2.2 Total Bilirubin 0.6 D AST 13 L ALT 12 Alkaline Phosphatase 42 L Total Protein 6.6 Albumin 3.6 Vitamin B12 192 Serum Folate 9 TSH 1.70 Serum , Qual Urine Color Urine Appearance Urine pH Ur Specific [place] Urine Protein Urine Glucose (UA) Urine Ketones Urine Blood Urine Nitrite Urine Bilirubin Urine Urobilinogen Ur Leukocyte Esterase Urine WBC (Auto) Urine RBC (Auto) Ur Epithelial Cells Urine Mucus Urine HCG, Qual Opiates Screen Methadone Screen Barbiturate Screen Phencyclidine Screen Ur Amphetamines Screen MDMA (Ecstasy) Screen Benzodiazepines Screen Cocaine Screen U Marijuana (THC) Screen HIV 1&2 Antibody Screen Negative HIV P24 Antigen Negative Active Medications Generic Name Dose Route Start Last Admin Trade Name Freq PRN Reason Stop Dose Admin Chlordiazepoxide HCl 25 mg 07/30/17 07:35 Librium - PO 08/02/17 07:34 Q4H PRN WITHDRAWAL(CONT SUBST) Chlordiazepoxide HCl 15 mg 07/31/17 11:00 Librium - PO 08/01/17 05:01 [id number] GRAEME Chlordiazepoxide HCl 25 mg 07/30/17 15:00 Librium - PO 07/30/17 23:01 [id number] GRAEME ASSESSMENT/PLAN: 22 yo F with a history of polysubstance abuse (marijuana, xanax) presented to the ED after a witnessed tonic-clonic seizure #Seizure, likely withdrawal from benzo -Neuro consulted, Dr. Gomez -Librium protocol for detox -Refusing outpatient detox/rehab -Patient states she got xanax from friend (Utox is negative) #Anxiety -Outpatient psych f/u -Explained importance of not using xanax at home #FEN -No iv fluids -WNL -Regular diet #PPx -Early ambulation #Dispo: can d/c after librium protocol Visit type - Emergency Visit Emergency Visit: Yes ED Registration Date: 07/29/17 Care time: The patient presented to the Emergency Department on the above date and was hospitalized for further evaluation of their emergent condition. - New Patient This patient is new to me today: Yes Date on this admission: 07/30/17 - Critical Care Critical Care patient: No
--- NOTE | 2017-07-30 15:05 | PN ---
Teaching Attending Note Name of Resident: Zacarias Duvall ATTENDING PHYSICIAN STATEMENT I saw and evaluated the patient. I reviewed the resident's note and discussed the case with the resident. I agree with the resident's findings and plan as documented. SUBJECTIVE: No fever or chills. no CASTILLO or visual changes , no weakness , numbness or tingling OBJECTIVE: NA d CV: RRR Lungs: CTAB ext: no edema or tremor Neuro: EOMI, round equal pupils reactive to light. tongue and uvula at mid line . strength 5/5 in upper nad lower ext proximaly and distally. sensation to light touch NL. reflexes 2+ knee jerk and biceps b/l . A/P : 22 y/o lady with h/o previous seizure ins setting of benzo withdrawal, and substance abuse who presented with a seizure. 1- Seizure : likely benzo withdrawal seizure . Nl neuro exam - appreciate neuro input, no AED - start librium protocol to detox and prevent further withdrawal seizure - Urine tox neg for benzo although she reports taking it yesterday am. ( got benzo sticks form a different source ) 2- benzo withdrawal , detox as above not interested in quitting 3- base line anxiety: advised to follow with psych and avoid benzos HLOC
[2017-07-30] MEDS: chlordiazePOXIDE HCL 25 MG CAPSULE PO SCH ×3 (15:18→22:20)
[2017-07-31] MEDS: chlordiazePOXIDE 5 MG CAPSULE PO SCH ×4 (05:18→22:08)
--- NOTE | 2017-07-31 09:52 | PN ---
Progress Note (short form) - Note Progress Note: Neurology HISTORY OF PRESENT ILLNESS: Patient is a 22 yo F with a history of polysubstance abuse (marijuana, xanax) presented to the ED after a witnessed tonic-clonic seizure by her father lasting 2-3 minutes. Reportedly, this is her third event. All of them have been in the context of benzo withdrawal according to the patient. Utox did not show benzo though patient reports last use was one day prior. Had an extensive conversation about not mixing toxic substances with medications (MJ, other opioids). Believes she has Xanax issue under control and can stop taking it but each time she ends up going back on it. Reported recent "heartbreak" as trigger and informed her other stressors may trigger recurrences and encouraged at least consult with psych and/or technical specialist cytogenetics. Seems to be in denial of her possible addiction. Neurologically, does not seem to be organic seizure disorder. Would not want to expose her to toxicity of AEDS as her events are triggered by medication abuse/withdrawal. Focus this underlying etiology would be most effective. Further, AEDS not likely to prevent withdrawal seizures. CT head reviewed and without acute changes. No events ovenright. Patient on Librium protocal which she reports has not caused any complications. No withdrawal symptoms. Active Medications Chlordiazepoxide HCl (Librium -) 25 mg PO Q4H PRN PRN Reason: WITHDRAWAL(CONT SUBST) Stop: 08/02/17 07:34 Chlordiazepoxide HCl (Librium -) 15 mg PO [id number] GRAEME Stop: 07/31/17 23:01 Last Admin: 07/31/17 05:18 Dose: 15 mg PHYSICAL EXAMINATION Vital Signs Period Temp Pulse Resp BP Sys/Mason Pulse Ox Last 24 Hr 97.6 F-98.7 F 57-81 19-20 98-114/47-85 99-99 GENERAL: a/o x 3, laying in bed comfortably on her phone HEAD: Normal with no signs of trauma. EYES: Pupils equal, round and reactive to light, extraocular movements intact, sclera anicteric, conjunctiva clear. No lid lag. EARS, NOSE, THROAT: bleeding right cheek inside mouth NECK: Normal range of motion, supple without lymphadenopathy, JVD, or masses. LUNGS: Breath sounds equal, clear to auscultation bilaterally. No wheezes, and no crackles. No accessory muscle use. HEART: Regular rate and rhythm, normal S1 and S2 without murmur, rub or gallop. ABDOMEN: Soft, nontender, not distended, normoactive bowel sounds, no guarding, no rebound, no masses. MUSCULOSKELETAL: Normal range of motion at all joints. No bony deformities or tenderness. No CVA tenderness. UPPER EXTREMITIES: 2+ pulses, warm, well-perfused. No cyanosis. No clubbing. No peripheral edema. LOWER EXTREMITIES: 2+ pulses, warm, well-perfused. No calf tenderness. No peripheral edema. NEUROLOGICAL: Cranial nerves II-XII intact. Normal speech. Normal gait. PSYCHIATRIC: Cooperative. Good eye contact SKIN: Warm, dry, normal turgor, no rashes or lesions noted, normal capillary refill. CBCD WBC 9.9 K/mm3 (4.0-10.0) 07/30/17 05:35 RBC 4.40 M/mm3 (3.60-5.2) 07/30/17 05:35 Hgb 13.2 GM/dL (10.7-15.3) 07/30/17 05:35 Hct 38.5 % (32.4-45.2) 07/30/17 05:35 MCV 87.6 fl (80-96) 07/30/17 05:35 MCHC 34.2 g/dl (32.0-36.0) 07/30/17 05:35 RDW 14.1 % (11.6-15.6) 07/30/17 05:35 Plt Count 218 K/MM3 (134-434) 07/30/17 05:35 MPV 10.4 fl (7.5-11.1) 07/30/17 05:35 CMP Sodium 138 mmol/L (136-145) 07/30/17 05:35 Potassium 3.8 mmol/L (3.5-5.1) 07/30/17 05:35 Chloride 107 mmol/L (98-107) 07/30/17 05:35 Carbon Dioxide 25 mmol/L (21-32) 07/30/17 05:35 Anion Gap 6 (8-16) L 07/30/17 05:35 BUN 12 mg/dL (7-18) 07/30/17 05:35 Creatinine 0.7 mg/dL (0.55-1.02) 07/30/17 05:35 Creat Clearance w eGFR > 60 (>60) 07/30/17 05:35 Calcium 8.4 mg/dL (8.5-10.1) L 07/30/17 05:35 Total Bilirubin 0.6 mg/dL (0.2-1.0) D 07/30/17 05:35 AST 13 U/L (15-37) L 07/30/17 05:35 ALT 12 U/L (12-78) 07/30/17 05:35 Alkaline Phosphatase 42 U/L (45-117) L 07/30/17 05:35 Total Protein 6.6 g/dl (6.4-8.2) 07/30/17 05:35 Albumin 3.6 g/dl (3.4-5.0) 07/30/17 05:35 CT head reviewed ASSESSMENT/PLAN: 22 yo F with a history of polysubstance abuse (marijuana, xanax) presented to the ED after a witnessed tonic-clonic seizure by her father lasting 2-3 minutes. Reportedly, this is her third event. All of them have been in the context of benzo withdrawal according to the patient. Utox did not show benzo though patient reports last use was one day prior. Had an extensive conversation about not mixing toxic substances with medications (MJ, other opioids). Believes she has Xanax issue under control and can stop taking it but each time she ends up going back on it. Reported recent "heartbreak" as trigger and informed her other stressors may trigger recurrences and encouraged at least consult with psych and/or technical specialist cytogenetics. Seems to be in denial of her possible addiction. Neurologically, does not seem to be organic seizure disorder. Would not want to expose her to toxicity of AEDS as her events are triggered by medication abuse/ withdrawal. Focus this underlying etiology would be most effective. Further, AEDS not likely to prevent withdrawal seizures. Continue medical optimization Librium protocal Consider eval from technical specialist cytogenetics and/or psych Neurologically stable
[2017-07-31] MEDS ORDERED: chlordiazePOXIDE HCL 25 MG CAPSULE PO SCH (11:00)
--- NOTE | 2017-07-31 12:59 | PN ---
Teaching Attending Note Name of Resident: Zacarias Duvall ATTENDING PHYSICIAN STATEMENT I saw and evaluated the patient. I reviewed the resident's note and discussed the case with the resident. I agree with the resident's findings and plan as documented. SUBJECTIVE: OBJECTIVE: Vital Signs Period Temp Pulse Resp BP Sys/Mason Pulse Ox Last 24 Hr 97.2 F-98.7 F 57-78 18-20 98-114/47-85 99 Current Medications Generic Name Dose Route Start Last Admin Trade Name Freq PRN Reason Stop Dose Admin Chlordiazepoxide HCl 25 mg 07/30/17 07:35 Librium - PO 08/02/17 07:34 Q4H PRN WITHDRAWAL(CONT SUBST) Chlordiazepoxide HCl 15 mg 07/31/17 05:00 07/31/17 10:57 Librium - PO 07/31/17 23:01 15 mg [id number] [id number] Administration ASSESSMENT AND PLAN: 22 y/o lady with h/o previous seizure ins setting of benzo withdrawal, and substance abuse who presented with a seizure. 1- Seizure : likely benzo withdrawal seizure . Nl neuro exam - appreciate neuro input, no AED - start librium protocol to detox and prevent further withdrawal seizure - Urine tox neg for benzo although she reports taking it yesterday am. ( got benzo sticks form a different source ) 2- benzo withdrawal , detox as above not interested in quitting 3- base line anxiety: advised to follow with psych and avoid benzos HLOC
--- NOTE | 2017-07-31 14:26 | DS ---
Physical Exam: Selected Entries 07/31/17 07/31/17 10:00 12:00 Temperature 97.2 F L Pulse Rate 72 Respiratory 18 Rate Blood Pressure 110/75 O2 Sat by Pulse 99 Oximetry (%) Oxygen Delivery Room Air Method Laboratory Tests 07/29/17 07/29/17 07/29/17 17:58 20:35 22:11 WBC Hgb Hct Plt Count Sodium Potassium Chloride Carbon Dioxide Anion Gap BUN Creatinine Creat Clearance w eGFR Vitamin B12 Serum Folate TSH Serum , Qual Negative Urine pH 6.0 Ur Specific [place] 1.023 Urine Protein Negative Urine Glucose (UA) Negative Urine Ketones 1+ H Urine Blood 1+ H Urine Nitrite Negative Urine Bilirubin Negative Ur Leukocyte Esterase Negative Urine WBC (Auto) <1 Urine RBC (Auto) 4 Ur Epithelial Cells Rare Urine Mucus Rare Urine HCG, Qual Negative Opiates Screen Negative Methadone Screen Negative Barbiturate Screen Negative Phencyclidine Screen Negative Ur Amphetamines Screen Negative MDMA (Ecstasy) Screen Negative Benzodiazepines Screen Negative Cocaine Screen Negative U Marijuana (THC) Screen Positive HIV 1&2 Antibody Screen HIV P24 Antigen 07/30/17 07/30/17 07/30/17 05:35 05:35 05:35 WBC 9.9 Hgb 13.2 Hct 38.5 Plt Count 218 Sodium 138 Potassium 3.8 Chloride 107 Carbon Dioxide 25 Anion Gap 6 L BUN 12 Creatinine 0.7 Creat Clearance w eGFR > 60 Vitamin B12 192 Serum Folate 9 TSH 1.70 Serum , Qual Urine pH Ur Specific [place] Urine Protein Urine Glucose (UA) Urine Ketones Urine Blood Urine Nitrite Urine Bilirubin Ur Leukocyte Esterase Urine WBC (Auto) Urine RBC (Auto) Ur Epithelial Cells Urine Mucus Urine HCG, Qual Opiates Screen Methadone Screen Barbiturate Screen Phencyclidine Screen Ur Amphetamines Screen MDMA (Ecstasy) Screen Benzodiazepines Screen Cocaine Screen U Marijuana (THC) Screen HIV 1&2 Antibody Screen HIV P24 Antigen 07/30/17 07:50 WBC Hgb Hct Plt Count Sodium Potassium Chloride Carbon Dioxide Anion Gap BUN Creatinine Creat Clearance w eGFR Vitamin B12 Serum Folate TSH Serum , Qual Urine pH Ur Specific [place] Urine Protein Urine Glucose (UA) Urine Ketones Urine Blood Urine Nitrite Urine Bilirubin Ur Leukocyte Esterase Urine WBC (Auto) Urine RBC (Auto) Ur Epithelial Cells Urine Mucus Urine HCG, Qual Opiates Screen Methadone Screen Barbiturate Screen Phencyclidine Screen Ur Amphetamines Screen MDMA (Ecstasy) Screen Benzodiazepines Screen Cocaine Screen U Marijuana (THC) Screen HIV 1&2 Antibody Screen Negative HIV P24 Antigen Negative ekg-nsr @ [address] - negative cxr- negative HOSPITAL COURSE: Date of Admission:07/29/17 Date of Discharge: 07/31/17 22 F with hx. of polysubstance abuse (Marijuana/Xanax) who presented after a witnessed tonic- clonic seizure by her father. Patient only took half her normal daily dose of xanax today and had a withdrawal seizure. Patient cleared by neurology for any need for AEDs. Patient was post ictal x 3 minutes. Patient treated here with librium protocol and pa'ed home. Patient advised to not use xanax. Minutes to complete discharge: 36 Discharge Summary Reason For Visit: SEIZURE Current Active Problems Polysubstance abuse (Acute) Seizure (Acute) Condition: Stable - Instructions Diet, Activity, Other Instructions: You were treated for a possible benzodiazipine withdrawal seizure with a librium. Recommendations: Please abstain from drugs and medications that were not prescribed to you. Follow-up with your primary care physician in 1 week for post-hospital discharge. Seek help for your anxiety from healthcare professional, please speak with your primary care doctor for a referral. Follow-up with neurology for further evaluation of your seizure, contact information for the neurologist who assessed you in the hospital has been proved , please call to make an appointment. If your seizures return, you develop chest pain, trouble breathing or any symptoms please return to the hospital. Referrals: Govind Moreno [Primary Care Provider] - Disposition: HOME - Home Medications Comprehensive Discharge Medication List: Ambulatory Orders NK [No Known Home Medication] 07/29/17 This patient is new to me today: No Emergency Visit: Yes ED Registration Date: 07/29/17 Care time: The patient presented to the Emergency Department on the above date and was hospitalized for further evaluation of their emergent condition. Critical Care patient: No - Discharge Referral Referred to [facility] Med [facility] No
[2017-07-31] MEDS ORDERED: ACETAMINOPHEN 325 MG TABLET (FP) PO ONE (17:30)
[2017-07-31 23:21] VITALS: BP 127/70; PULSE 74; TEMP 98.2
[2017-08-01] MEDS ORDERED: chlordiazePOXIDE 5 MG CAPSULE PO SCH (11:00)
== END 2017-07-31 22:19 | disposition home or self-care (01) ==
LOC: JER 17:25 → JERBED 23:13 → J4S 07-30 02:06
PROVIDERS: ADMIT Internal Medicine; ATTEND Internal Medicine
DX: R56.9 Unspecified convulsions (principal); F13.239 Sedative, hypnotic or anxiolytic dependence with withdrawal, unspecified; F12.10 Cannabis abuse, uncomplicated; F41.9 Anxiety disorder, unspecified
CPT/HCPCS: 36415; 70450-TC; 71046-TC-FY; 80053; 80307; 81003; 81015; 82607; 82746; 83735; 84100; 84443; 84703; 85025; 85027; 87389; 93005; 93010; 99285-25; G0378

== ENCOUNTER 2017-09-24 11:07 | Emergency (ER) | payer OTHER ==
[2017-09-24] MEDS ORDERED: FAMOTIDINE 20 MG/50 ML IVPB 20 MG/50 ML MG IVPB ONE ×2 (11:34→12:33)
[2017-09-24] MEDS ORDERED: SODIUM CHLORIDE 1,000 ML IV STA (11:34)
[2017-09-24] MEDS ORDERED: ONDANSETRON 4 MG/2 ML VIAL IVPB ONE (11:34)
[2017-09-24 11:47] VITALS: BP 102/48; PULSE 55; TEMP 98.6; BMI 21.9
[2017-09-24] MEDS ORDERED: ONDANSETRON 4 MG/2 ML VIAL ONE (11:49)
--- NOTE | 2017-09-24 12:36 | PDOC ---
History of Present Illness <Naresh Nava - Last Filed: 09/24/17 12:39> - History of Present Illness Initial Comments: 09/24/17 12:32 "The patient is a 22 year old female, with a no significant PMH, who presents to the emergency department complaining of multiple episodes of emesis (non bloody) beginning at 4:30 am. The patient states that since this morning at approx. 4:30 am she has had about 12 episodes of emesis (non bloody), accompanied by chills. The patient states she has felt warm but denies recent fevers The patient also endorses an episode of diarrhea (non bloody). The patient reports she had fish and rice, cooked at home by her father, several hours before going to sleep last night. The patient states she felt slightly unwell before going to bed. The patient states she is currently on her menstrual cycle and denies any chance of . She denies any sick contacts. She denies any abdominal pain or cramping. Denies dysuria. The patient denies chest pain, shortness of breath, headache, fever, and constipation. Denies dysuria, frequency, urgency and hematuria. Allergies: NKA <Luis Hutchinson - Last Filed: 09/24/17 13:57> - General Chief Complaint: Nausea/Vomiting Stated Complaint: VOMITING NAUSEA Time Seen by Provider: 09/24/17 11:27 Past History <Naresh Nava - Last Filed: 09/24/17 12:39> - Past Medical History Asthma: No Cancer: No Cardiac Disorders: No COPD: No Diabetes: No HTN: No Seizures: Yes (seizure x3 post benzo withdrawl) Thyroid Disease: No Other medical history: marijuana daily - Immunization History Immunization Up to Date: Yes - Suicide/Smoking/Psychosocial Hx Smoking Status: No Smoking History: Current some day smoker Have you smoked in the past 12 months: No Number of Cigarettes Smoked Daily: 3 Information on smoking cessation initiated: No 'Breaking Loose' booklet given: 07/30/17 Hx Alcohol Use: No Drug/Substance Use Hx: No Substance Use Type: Marijuana, Prescribed Hx Substance Use Treatment: Yes <Luis Hutchinson - Last Filed: 09/24/17 13:57> - Past Medical History Allergies/Adverse Reactions: Allergies Allergy/AdvReac Type Severity Reaction Status Date / Time No Known Allergies Allergy Verified 09/24/17 11:47 Home Medications: Ambulatory Orders NK [No Known Home Medication] 07/29/17 Review of Systems - Review of Systems Comments:: 09/24/17 12:34 "GENERAL/CONSTITUTIONAL: +Chills. No fever. No weakness. HEAD, EYES, EARS, NOSE AND THROAT: No change in vision. No ear pain or discharge. No sore throat. CARDIOVASCULAR: No chest pain or shortness of breath. RESPIRATORY: No cough, wheezing, or hemoptysis. GASTROINTESTINAL: +Nausea. +Vomiting. +Diarrhea. No constipation. GENITOURINARY: No dysuria, frequency, or change in urination. MUSCULOSKELETAL: No joint or muscle swelling or pain. No neck or back pain. SKIN: No rash NEUROLOGIC: No headache, vertigo, loss of consciousness, or change in strength/ sensation. ENDOCRINE: No increased thirst. No abnormal weight change. HEMATOLOGIC/LYMPHATIC: No anemia, easy bleeding, or history of blood clots. ALLERGIC/IMMUNOLOGIC: No hives or skin allergy. " <Luis Hutchinson - Last Filed: 09/24/17 13:57> *Physical Exam - Vital Signs Last Vital Signs Temp Pulse Resp BP Pulse Ox 98.6 F 55 L 16 102/48 99 09/24/17 11:07 09/24/17 11:07 09/24/17 11:07 09/24/17 11:07 09/24/17 11:07 <Naresh Nava - Last Filed: 09/24/17 12:39> - Vital Signs Last Vital Signs Temp Pulse Resp BP Pulse Ox 98.6 F 55 L 16 102/48 99 09/24/17 11:07 09/24/17 11:07 09/24/17 11:07 09/24/17 11:07 09/24/17 11:07 - Physical Exam Comments: 09/24/17 12:35 "GENERAL: Awake, alert, and fully oriented, in no acute distress. HEAD: No signs of trauma EYES: PERRLA, EOMI, sclera anicteric, conjunctiva clear ENT: Auricles normal inspection, hearing grossly normal, nares patent, oropharynx clear without exudates. Moist mucosa NECK: Nontender, no stepoffs, Normal ROM, supple, no lymphadenopathy, JVD, or masses LUNGS: Breath sounds equal, clear to auscultation bilaterally. No wheezes, and no crackles HEART: Regular rate and rhythm, normal S1 and S2, no murmurs, rubs or gallops ABDOMEN: Soft, nontender, normoactive bowel sounds. No guarding, no rebound. No masses EXTREMITIES: Normal range of motion, no edema. No clubbing or cyanosis. No cords, erythema, or tenderness NEUROLOGICAL: Cranial nerves II through XII intact. 5/5 strength and sensation in all extremities, Normal speech, normal gait, normal cerebellar function SKIN: Warm, Dry, normal turgor, no rashes or lesions noted. " <Luis Hutchinson - Last Filed: 09/24/17 13:57> ED Treatment Course - Medications Given in the ED: ED Medications Discontinued Medications Generic Name Dose Route Start Last Admin Trade Name Freq PRN Reason Stop Dose Admin Famotidine/Sodium Chloride 20 mg in 50 mls @ 100 mls/hr 09/24/17 11:34 12:26 Pepcid 20 Mg Premixed Ivpb - IVPB 09/24/17 12:03 100 mls/hr ONCE ONE Administration Sodium Chloride 1,000 mls @ 1,000 mls/hr 09/24/17 11:34 09/24/17 11:47 Normal Saline - IV 09/24/17 12:33 1,000 mls/hr ASDIR STA Administration Ondansetron HCl 4 mg 09/24/17 11:34 09/24/17 11:47 Zofran Injection IVPB 09/24/17 11:35 4 mg ONCE ONE Administration <Naresh Nava - Last Filed: 09/24/17 12:39> - LABORATORY CBC & Chemistry Diagram: 09/24/17 12:00 09/24/17 12:00 - Medications Given in the ED: ED Medications Discontinued Medications Generic Name Dose Route Start Last Admin Trade Name Freq PRN Reason Stop Dose Admin Famotidine/Sodium Chloride 20 mg in 50 mls @ 100 mls/hr 09/24/17 11:34 12:26 Pepcid 20 Mg Premixed Ivpb - IVPB 09/24/17 12:03 100 mls/hr ONCE ONE Administration Ondansetron HCl 4 mg 09/24/17 11:34 09/24/17 11:47 Zofran Injection IVPB 09/24/17 11:35 4 mg ONCE ONE Administration <Luis Hutchinson - Last Filed: 09/24/17 13:57> Medical Decision Making - Medical Decision Making 09/24/17 12:35 22 F with N+V+D. Likely viral gastroenteritis. Pt denies abdominal pain and has benign abdominal exam with no tenderness. - Labs, lipase - UA, UPT - IVF, zofran 09/24/17 13:54 Labs wnl Pt with 6 WBC on UA but no dysuria, no symptoms of UTI. Pt reassessed - now tolerating PO, with improvement in nausea. Repeat abdominal exam benign. Pt is well appearing, with normal vitals. Clinically stable for DC at this time. I discussed the physical exam findings, ancillary test results and final diagnoses with the patient. I answered all of the patient's questions. The patient was satisfied with the care received and felt comfortable with the discharge plan and treatment plan. The patient agrees to follow up with the primary care physician within 24-72 hours. <Luis Hutchinson - Last Filed: 09/24/17 13:57> *DC/Admit/Observation/Transfer - Attestations Scribe Attestion: 09/24/17 12:39 Documentation prepared by Naresh Nava, acting as product manager medical device for Luis Hutchinson MD. <Naresh Nava - Last Filed: 09/24/17 12:39> - Attestations Physician Attestion: 09/24/17 13:56 I, Dr. Luis Hutchinson MD, attest that this document has been prepared under my direction and personally reviewed by me in its entirety. I further attest, that it accurately reflects all work, treatment, procedures and medical decision -making performed by me. <Luis Hutchinson - Last Filed: 09/24/17 13:57> Diagnosis at time of Disposition: Nausea and vomiting - Discharge Dispostion Disposition: HOME - Referrals Referrals: Govind Moreno [Primary Care Provider] - - Patient Instructions Printed Discharge Instructions: DI for Viral Gastroenteritis -- Adult Additional Instructions: Drink plenty of fluids to stay hydrated. Take tylenol or motrin as needed for fevers and pain. If you experience severe abdominal pain, persistent nausea and vomiting, high fevers, or any other concerning symptoms, return to the ER immediately. Otherwise, follow up with your primary doctor within 1 week for a re-evaluation. - Post Discharge Activity
[2017-09-24 12:43] LABS: BASO % 0.3 % (0-2.0); EOS % 0.4 % (0-4.5); HEMATOCRIT 42.3 % (32.4-45.2); HEMOGLOBIN 14.1 GM/dL (10.7-15.3); LYMPH % 9.7 % (8-40); MCH 29.3 pg (25.7-33.7); MCHC 33.3 g/dl (32.0-36.0); MEAN PLT VOLUME 10.7 fl (7.5-11.1); MONO % 4.4 % (3.8-10.2); NEUT % 85.2 % (42.8-82.8); PLATELET COUNT 256 K/MM3 (134-434); WHITE BLOOD COUNT 11.7 K/mm3 (4.0-10.0)
[2017-09-24 13:17] LABS: ALBUMIN 4.1 g/dl (3.4-5.0); ALK PHOS 49 U/L (45-117); ANION GAP 8 (8-16); BILIRUBIN,TOTAL 0.6 mg/dL (0.2-1.0); BLOOD UREA NITROGEN 14 mg/dL (7-18); CALCIUM 9.2 mg/dL (8.5-10.1); CHLORIDE 104 mmol/L (98-107); CO2 27 mmol/L (21-32); CREATININE 0.7 mg/dL (0.55-1.02); GLUCOSE,RANDOM 87 mg/dL (74-106); LIPASE 79 U/L (73-393); POTASSIUM 4.1 mmol/L (3.5-5.1); SGOT/AST 17 U/L (15-37); SGPT/ALT 23 U/L (12-78); SODIUM 139 mmol/L (136-145); TOT PROT 7.7 g/dl (6.4-8.2)
[2017-09-24 13:22] LABS: HCG,QUALITATIVE URINE NEGATIVE
[2017-09-24 13:25] LABS: URINE APPEARANCE SLCLOUDY; URINE BILIRUBIN NEGATIVE (<2.0 mg/dL); URINE COLOR YELLOW; URINE GLUCOSE (UA) NEGATIVE (NEGATIVE); URINE KETONE 1+ (NEGATIVE); URINE LEUK ESTERASE NEGATIVE (NEGATIVE); URINE NITRITE NEGATIVE (NEGATIVE); URINE PROTEIN NEGATIVE (NEGATIVE); URINE UROBILINOGEN NEGATIVE mg/dL (0.2-1.0)
[2017-09-24 13:31] LABS: EPI CELLS FEW /HPF (FEW); URINE HYALINE CAST 1 /lpf
--- NOTE | 2017-09-26 11:57 | EKG ---
Test Reason : Blood Pressure : / mmHG Vent. Rate : 061 BPM Atrial Rate : 061 BPM P-R Int : 116 ms QRS Dur : 084 ms QT Int : 414 ms P-R-T Axes : 039 077 054 degrees QTc Int : 416 ms NORMAL SINUS RHYTHM WITH SINUS ARRHYTHMIA NORMAL ECG WHEN COMPARED WITH ECG OF 29-JUL-2017 23:40, NO SIGNIFICANT CHANGE WAS FOUND Confirmed by DODIE GIBSON MD ([id number]) on 09/26/2017 11:57:31 AM Referred By: Confirmed By:DODIE GIBSON MD
== END 2017-09-24 14:09 | disposition home or self-care (01) ==
LOC: JER 11:07
PROC: 3E033GC Introduction of Other Therapeutic Substance into Peripheral Vein, Percutaneous Approach (ICD-10-PCS; principal; 2017-09-24)
PROC: 3E033GC Introduction of Other Therapeutic Substance into Peripheral Vein, Percutaneous Approach (ICD-10-PCS; 2017-09-24)
DX: A08.4 Viral intestinal infection, unspecified (principal); B97.89 Other viral agents as the cause of diseases classified elsewhere; G40.509 Epileptic seizures related to external causes, not intractable, without status epilepticus; F17.210 Nicotine dependence, cigarettes, uncomplicated
CPT/HCPCS: 36415; 80053; 81003; 81015; 83690; 84703; 85025; 93005; 93010; 96365; 96375; 99282-25; J7030

== ENCOUNTER 2017-09-27 22:05 | Emergency (ER) | payer OTHER ==
[2017-09-27 22:48] VITALS: BP 113/46; PULSE 69; TEMP 98; BMI 21.7
[2017-09-27] MEDS ORDERED: SODIUM CHLORIDE 1,000 ML IV STA (22:54)
[2017-09-27] MEDS ORDERED: METOCLOPRAMIDE HCL INJECTION 10 MG/2 ML VIAL IVPUSH ONE (22:54)
[2017-09-27] MEDS ORDERED: FAMOTIDINE 20 MG/50 ML IVPB 20 MG/50 ML MG IVPB ONE ×2 (22:54→23:16)
[2017-09-27] MEDS ORDERED: METOCLOPRAMIDE HCL INJECTION 10 MG/2 ML VIAL ONE (23:16)
[2017-09-27 23:46] LABS: BASO % 0.6 % (0-2.0); EOS % 2.4 % (0-4.5); HEMATOCRIT 42.7 % (32.4-45.2); HEMOGLOBIN 14.5 GM/dL (10.7-15.3); LYMPH % 31.9 % (8-40); MCH 29.5 pg (25.7-33.7); MCHC 33.9 g/dl (32.0-36.0); MEAN CELL VOLUME 87.1 fl (80-96); MEAN PLT VOLUME 9.9 fl (7.5-11.1); MONO % 6.8 % (3.8-10.2); NEUT % 58.3 % (42.8-82.8); PLATELET COUNT 256 K/MM3 (134-434); RDW 13.7 % (11.6-15.6); WHITE BLOOD COUNT 8.3 K/mm3 (4.0-10.0)
--- NOTE | 2017-09-27 23:59 | PDOC ---
History of Present Illness - General Chief Complaint: Pain Stated Complaint: ABD PAIN Time Seen by Provider: 09/27/17 22:44 History Source: Patient Exam Limitations: No Limitations - History of Present Illness Initial Comments: 09/27/17 23:55 Patient is a 22F with no significant medical history here today complaining of abdominal pain, nausea, vomiting, and diarrhea. She was recently seen in the ED and was worked up with abdominal labs that were found to be normal. Patient responded to zofran and was sent home. Patient describes her abdominal pain as a diffuse bloating sensation and reports burping multiple times. She also complains of hematuria. Denies pain with urination. Denies blood in stool and vomit. Past History - Past Medical History Allergies/Adverse Reactions: Allergies Allergy/AdvReac Type Severity Reaction Status Date / Time No Known Allergies Allergy Verified 09/27/17 22:48 Home Medications: Ambulatory Orders Ranitidine [Zantac -] 150 mg PO DAILY #7 tablet 09/28/17 Asthma: No Cancer: No Cardiac Disorders: No COPD: No Diabetes: No HTN: No Seizures: Yes (seizure x3 post benzo withdrawl) Thyroid Disease: No - Immunization History Immunization Up to Date: Yes - Suicide/Smoking/Psychosocial Hx Smoking Status: No Smoking History: Never smoked Have you smoked in the past 12 months: No Number of Cigarettes Smoked Daily: 3 Information on smoking cessation initiated: No 'Breaking Loose' booklet given: 07/30/17 Hx Alcohol Use: No Drug/Substance Use Hx: No Substance Use Type: Marijuana, Prescribed Hx Substance Use Treatment: Yes Review of Systems - Review of Systems Comments:: 09/27/17 23:59 GENERAL/CONSTITUTIONAL: No fever or chills. No weakness. HEAD, EYES, EARS, NOSE AND THROAT: No change in vision. No sore throat. CARDIOVASCULAR: No chest pain or shortness of breath RESPIRATORY: No cough, wheezing, or hemoptysis. GASTROINTESTINAL: + nausea, vomiting, diarrhea GENITOURINARY: No dysuria, frequency, or change in urination. MUSCULOSKELETAL: No joint or muscle swelling or pain. No neck or back pain. SKIN: No rash NEUROLOGIC: No headache, vertigo, loss of consciousness, or change in strength/ sensation. ENDOCRINE: No increased thirst. No abnormal weight change HEMATOLOGIC/LYMPHATIC: No anemia, easy bleeding, or history of blood clots. ALLERGIC/IMMUNOLOGIC: No hives or skin allergy. *Physical Exam - Vital Signs Last Vital Signs Temp Pulse Resp BP Pulse Ox 98.0 F 69 15 113/46 100 09/27/17 22:30 09/27/17 22:30 09/27/17 22:30 09/27/17 22:30 09/27/17 22:30 - Physical Exam Comments: 09/28/17 00:00 GENERAL: Awake, alert, and fully oriented, in no acute distress HEAD: No signs of trauma, normocephalic, atraumatic EYES: PERRLA, EOMI, sclera anicteric, conjunctiva clear ENT: Auricles normal inspection, hearing grossly normal, nares patent, oropharynx clear without exudates. Moist mucosa NECK: Normal ROM, supple, no lymphadenopathy, JVD, or masses LUNGS: No distress, speaks full sentences, clear to auscultation bilaterally HEART: Regular rate and rhythm, normal S1 and S2, no murmurs, rubs or gallops, peripheral pulses normal and equal bilaterally. ABDOMEN: Soft, nontender, normoactive bowel sounds. No guarding, no rebound. No masses EXTREMITIES: Normal inspection, Normal range of motion, no edema. No clubbing or cyanosis. NEUROLOGICAL: Cranial nerves II through XII grossly intact. Normal speech, normal gait, no focal sensorimotor deficits SKIN: Warm, Dry, normal turgor, no rashes or lesions noted. ED Treatment Course - LABORATORY CBC & Chemistry Diagram: 09/27/17 23:30 09/27/17 23:30 - ADDITIONAL ORDERS Additional order review: 09/27/17 23:30 RBC 4.90 MCV 87.1 MCHC 33.9 RDW 13.7 MPV 9.9 Neutrophils % 58.3 D Lymphocytes % 31.9 D Monocytes % 6.8 Eosinophils % 2.4 D Basophils % 0.6 Medical Decision Making - Medical Decision Making 09/28/17 00:00 Patient is a 22F here today with likely gastroenteritis. Exam shows no tenderness. Vital signs normal and stable. Patient appears well. Will evaluate for UTI, , electrolyte abnormality. Will treat with zofran and pepcid. Likely discharge. 09/28/17 00:34 Laboratory Tests 09/27/17 09/27/17 23:30 23:30 WBC 8.3 Hgb 14.5 Plt Count 256 BUN 11 Creatinine 0.7 CBC normal. CMP reassuring. Lipase negative. Upreg pending, but negative two days ago. Will discharge home with zantac. *DC/Admit/Observation/Transfer Diagnosis at time of Disposition: Nausea and vomiting, Diarrhea - Discharge Dispostion Disposition: HOME Condition at time of disposition: Good Decision to Admit order: No - Prescriptions Prescriptions: Ranitidine [Zantac -] 150 mg PO DAILY #7 tablet - Referrals Referrals: Sera Velasquez MD [Primary Care Provider] - - Patient Instructions Printed Discharge Instructions: DI for Diarrhea and Traveler's Diarrhea -- Adult, DI for Vomiting -- Adult Additional Instructions: You were seen today in the ED for vomiting and diarrhea. Please take zantac as prescribed. Please return if you have any new worsening or concerning symptoms. Please follow up with your primary care physician in the next week. If you do not have one, a referral for one has been provided for you. - Post Discharge Activity
--- NOTE | 2017-09-28 00:10 | PDOC ---
Attending Attestation - Resident Resident Name: RekhaCase - ED Attending Attestation I have performed the following: I have examined & evaluated the patient, The case was reviewed & discussed with the resident, I agree w/resident's findings & plan, Exceptions are as noted - HPI HPI: 09/28/17 00:08 22yoF second presnetation for GI symptoms. Pt denies travel, endorses nausea, burning epig pain and loose stools without fever x few days. Pt feels much better after pepcid/reglan and is eating food in the ED. no pmhx no cig/etoh/illicits NKDA - Physicial Exam PE: 09/28/17 00:09 VS reviewed, stable as charted NAD soft NTND MMM, WWP - Medical Decision Making 09/28/17 00:09 22yoF w/ GI symptoms, likely persistent AGE> - DC w/ zofran, immodium PRN.
[2017-09-28 00:20] LABS: ALK PHOS 54 U/L (45-117); ANION GAP 6 (8-16); BILIRUBIN,TOTAL 0.5 mg/dL (0.2-1.0); BLOOD UREA NITROGEN 11 mg/dL (7-18); CALCIUM 8.9 mg/dL (8.5-10.1); CHLORIDE 104 mmol/L (98-107); CO2 29 mmol/L (21-32); CREATININE 0.7 mg/dL (0.55-1.02); GLUCOSE,RANDOM 83 mg/dL (74-106); LIPASE 76 U/L (73-393); POTASSIUM 3.7 mmol/L (3.5-5.1); SGOT/AST 17 U/L (15-37); SGPT/ALT 28 U/L (12-78); SODIUM 139 mmol/L (136-145); TOT PROT 7.6 g/dl (6.4-8.2)
[2017-09-28 00:43] LABS: URINE APPEARANCE CLEAR; URINE BILIRUBIN NEGATIVE (<2.0 mg/dL); URINE COLOR YELLOW; URINE GLUCOSE (UA) NEGATIVE (NEGATIVE); URINE KETONE NEGATIVE (NEGATIVE); URINE LEUK ESTERASE NEGATIVE (NEGATIVE); URINE NITRITE NEGATIVE (NEGATIVE); URINE PROTEIN NEGATIVE (NEGATIVE)
== END 2017-09-28 01:55 | disposition home or self-care (01) ==
LOC: JER 22:05
PROC: 3E033GC Introduction of Other Therapeutic Substance into Peripheral Vein, Percutaneous Approach (ICD-10-PCS; principal; 2017-09-27)
PROC: 3E033GC Introduction of Other Therapeutic Substance into Peripheral Vein, Percutaneous Approach (ICD-10-PCS; 2017-09-27)
DX: K52.9 Noninfective gastroenteritis and colitis, unspecified (principal); Z86.69 Personal history of other diseases of the nervous system and sense organs
CPT/HCPCS: 36415; 80053; 81003; 83690; 84703; 85025; 96365; 96375; 99283-25; J7030

== ENCOUNTER 2020-10-22 21:22 | Emergency (ER) | payer OTHER ==
[2020-10-22 21:34] VITALS: BP 118/82; PULSE 90; TEMP 98.2; BMI 27.4
[2020-10-22] MEDS ORDERED: ALBUTEROL SO4 0.083% IH SOL 2.5 MG/3 ML VIAL.NEB. NEB ONE ×2 (22:03→22:13)
[2020-10-22] MEDS ORDERED: ACETAMINOPHEN 325 MG TABLET (FP) PO ONE (22:42)
[2020-10-22] MEDS ORDERED: ACETAMINOPHEN 325 MG TABLET (FP) ONE (22:47)
== END 2020-10-22 22:50 | disposition home or self-care (01) ==
LOC: FER 21:22
PROC: 3E0F7GC Introduction of Other Therapeutic Substance into Respiratory Tract, Via Natural or Artificial Opening (ICD-10-PCS; principal; 2020-10-22)
DX: R06.2 Wheezing (principal); J06.9 Acute upper respiratory infection, unspecified; Z11.52 Encounter for screening for COVID-19
CPT/HCPCS: 71045-TC-FY; 81025; 99284-25; C9803; U0003; U0005

== ENCOUNTER 2021-09-02 13:44 | Emergency (ER) | payer OTHER ==
[2021-09-02] MEDS ORDERED: ACETAMINOPHEN 325 MG TABLET (FP) PO ONE (14:01)
[2021-09-02] MEDS ORDERED: ACETAMINOPHEN 325 MG TABLET (FP) ONE (14:06)
[2021-09-02 14:18] VITALS: BP 117/79; PULSE 89; TEMP 98; BMI 29.0
== END 2021-09-02 14:31 | disposition home or self-care (01) ==
LOC: FER 13:44
DX: J02.9 Acute pharyngitis, unspecified (principal)
CPT/HCPCS: 87070; 87077; 99284-25; C9803-CS; U0003; U0005

== ENCOUNTER 2022-05-18 18:28 | Emergency (ER) | payer OTHER ==
[2022-05-18 19:03] VITALS: BP 118/68; PULSE 86; RESP 18; TEMP 97.4; BMI 28.0
[2022-05-18] MEDS ORDERED: SODIUM CHLORIDE 0.9% 500 ML INFUS.BAG IV ONE (20:39)
[2022-05-18] MEDS ORDERED: ACETAMINOPHEN 1000 MG/100 ML BAG IVPB ONE (20:39)
[2022-05-18] MEDS ORDERED: ACETAMINOPHEN INJECTION 100 ML IVPB ONE (21:23)
[2022-05-18 21:26] LABS: BASO % 0.5 % (0-2.0); HEMATOCRIT 44.2 % (32.4-45.2); LYMPH % 17.2 % (8-40); MCH 29.8 pg (25.7-33.7); MCHC 33.9 g/dl (32.0-36.0); MEAN CELL VOLUME 87.9 fl (80-96); MONO % 4.3 % (3.8-10.2); PLATELET COUNT 280 10^3/uL (134-434); RBC 5.02 M/mm3 (3.60-5.2); RDW 13.4 % (11.6-15.6); WHITE BLOOD COUNT 10.8 K/mm3 (4.0-10.0)
[2022-05-18 21:33] LABS: INR 1.03 (0.83-1.09); PROTHROMBIN TIME (PATIENT) 11.9 SEC (9.7-13.0)
[2022-05-18 21:52] LABS: CALCIUM 9.4 mg/dL (8.5-10.1)
[2022-05-18 21:53] LABS: ALBUMIN 4.2 g/dl (3.4-5.0); MAGNESIUM 2.3 mg/dL (1.8-2.4)
[2022-05-18 21:56] LABS: CREATININE 0.8 mg/dL (0.55-1.3)
[2022-05-18 21:57] LABS: BILIRUBIN,TOTAL 0.3 mg/dL (0.2-1); TOT PROT 7.9 g/dl (6.4-8.2)
[2022-05-18] MEDS ORDERED: levETIRAcetam 500 MG TABLET (FP) PO ONE ×2 (23:07→23:31)
[2022-05-18 23:40] LABS: PH,URINE 7.5 (5.0-8.0); URINE APPEARANCE CLEAR; URINE BILIRUBIN NEGATIVE (NEGATIVE); URINE COLOR YELLOW; URINE GLUCOSE (UA) NEGATIVE (NEGATIVE); URINE KETONE TRACE (NEGATIVE); URINE LEUK ESTERASE NEGATIVE (NEGATIVE); URINE NITRITE NEGATIVE (NEGATIVE); URINE PROTEIN NEGATIVE (NEGATIVE)
[2022-05-18 23:47] LABS: OPIATES, URI NEGATIVE (NEGATIVE); URINE BARBITURATES NEGATIVE (NEGATIVE)
[2022-05-18 23:48] LABS: PHENCYCLIDINE,URINE NEGATIVE (NEGATIVE)
[2022-05-18 23:55] LABS: COCAINE, UR POSITIVE (NEGATIVE); METHADONE, UR NEGATIVE (NEGATIVE); URINE AMPHETAMINES NEGATIVE (NEGATIVE); URINE BENZODIAZEPINES POSITIVE (NEGATIVE)
== END 2022-05-18 23:56 | disposition home or self-care (01) ==
LOC: JER 18:28
PROC: 3E033GC Introduction of Other Therapeutic Substance into Peripheral Vein, Percutaneous Approach (ICD-10-PCS; principal; 2022-05-18)
DX: R56.9 Unspecified convulsions (principal); F13.939 Sedative, hypnotic or anxiolytic use, unspecified with withdrawal, unspecified
CPT/HCPCS: 36415; 70450-TC; 71045-TC-FY; 80053; 80307; 81003; 83735; 84703; 85025; 85610; 85730; 86850; 86900; 86901; 87086; 93005; 93010; 99285-25

== ENCOUNTER 2022-06-28 23:07 | Observation (INO) | payer OTHER ==
[2022-06-28 23:17] VITALS: RESP 18
[2022-06-28] MEDS ORDERED: levETIRAcetam 500 MG TABLET (FP) PO ONE ×2 (23:17→23:21)
[2022-06-28] MEDS ORDERED: ACETAMINOPHEN 500 MG TABLET (FP) PO ONE (23:25)
[2022-06-28] MEDS ORDERED: ACETAMINOPHEN 325 MG TABLET (FP) ONE (23:27)
[2022-06-28] MEDS ORDERED: SODIUM CHLORIDE 0.9% 500 ML INFUS.BAG IV ONE (23:40)
[2022-06-28] MEDS ORDERED: diazePAM CARPU-JECT 10 MG/2 ML DISP.SYRIN IVPUSH ONE (23:48)
[2022-06-29] LABS: URINE BENZODIAZEPINES NEGATIVE (NEGATIVE)
[2022-06-29 00:01] LABS: OPIATES, URI NEGATIVE (NEGATIVE); URINE AMPHETAMINES NEGATIVE (NEGATIVE); URINE BARBITURATES NEGATIVE (NEGATIVE)
[2022-06-29 00:02] LABS: PHENCYCLIDINE,URINE NEGATIVE (NEGATIVE)
[2022-06-29 00:03] LABS: COCAINE, UR POSITIVE (NEGATIVE); METHADONE, UR NEGATIVE (NEGATIVE)
[2022-06-29 00:14] LABS: BASO % 0.4 % (0-2.0); EOS % 2.1 % (0-4.5); HEMATOCRIT 42.1 % (32.4-45.2); HEMOGLOBIN 13.8 GM/dL (10.7-15.3); LYMPH % 17.5 % (8-40); MCH 28.1 pg (25.7-33.7); MCHC 32.9 g/dl (32.0-36.0); MEAN CELL VOLUME 85.5 fl (80-96); MEAN PLT VOLUME 9.6 fl (7.5-11.1); MONO % 4.8 % (3.8-10.2); NEUT % 75.2 % (42.8-82.8); PLATELET COUNT 277 10^3/uL (134-434); RBC 4.92 M/mm3 (3.60-5.2); RDW 13.4 % (11.6-15.6); WHITE BLOOD COUNT 13.5 K/mm3 (4.0-10.0)
[2022-06-29 00:30] LABS: EPI CELLS 4 /uL (0-25.1); HYALINE CASTS 0 /uL (0-3.1); PH,URINE 5.5 (5.0-8.0); URINE APPEARANCE CLEAR; URINE BACTERIA 46 /uL (0-1359); URINE BILIRUBIN NEGATIVE (NEGATIVE); URINE COLOR YELLOW; URINE GLUCOSE (UA) NEGATIVE (NEGATIVE); URINE KETONE 1+ (NEGATIVE); URINE LEUK ESTERASE NEGATIVE (NEGATIVE); URINE NITRITE NEGATIVE (NEGATIVE); URINE PROTEIN 1+ (NEGATIVE); URINE RBC 25 /uL (0-23.9); URINE UROBILINOGEN 0.2 mg/dL (0.2-1.0); URINE WBC 4 /uL (0-25.8)
[2022-06-29 00:36] LABS: CALCIUM 9.4 mg/dL (8.5-10.1)
[2022-06-29 00:37] LABS: BLOOD UREA NITROGEN 8.3 mg/dL (7-18); MAGNESIUM 2.1 mg/dL (1.8-2.4)
[2022-06-29 00:39] LABS: CREATININE 0.9 mg/dL (0.55-1.3)
[2022-06-29 00:41] LABS: BILIRUBIN,TOTAL 0.2 mg/dL (0.2-1); TOT PROT 7.6 g/dl (6.4-8.2)
[2022-06-29 05:44] VITALS: BMI 26.2
[2022-06-29 09:36] LABS: URINE APPEARANCE CLEAR; URINE BILIRUBIN NEGATIVE (NEGATIVE); URINE COLOR YELLOW; URINE GLUCOSE (UA) NEGATIVE (NEGATIVE); URINE KETONE NEGATIVE (NEGATIVE); URINE LEUK ESTERASE NEGATIVE (NEGATIVE); URINE NITRITE NEGATIVE (NEGATIVE); URINE PROTEIN NEGATIVE (NEGATIVE); URINE UROBILINOGEN 0.2 mg/dL (0.2-1.0)
[2022-06-29] MEDS ORDERED: FOLIC ACID 1 MG TABLET (FP) PO SCH ×2 (10:00)
[2022-06-29] MEDS ORDERED: levETIRAcetam 500 MG TABLET (FP) PO SCH (10:00)
[2022-06-29] MEDS ORDERED: PRENATAL VITAMINS W/ FOLIC ACID TABLET (FP) PO SCH (10:00)
[2022-06-29] MEDS ORDERED: ENOXAPARIN NA (PORCINE) 40 MG/0.4 ML DISP.SYRIN SQ SCH (10:00)
[2022-06-29 15:18] VITALS: BP 123/69; PULSE 84; TEMP 98.4
== END 2022-06-29 15:22 | disposition home or self-care (01) ==
LOC: JER 23:07 → UNDOADMOB 06-29 01:21 → JERBED 06-29 01:21 → INTOOBSV 06-29 01:21 → JERBED 06-29 01:30 → J7W 06-29 05:22 → JERBED 06-29 05:22
PROVIDERS: ADMIT Internal Medicine; ATTEND Internal Medicine
PROC: 3E023GC Introduction of Other Therapeutic Substance into Muscle, Percutaneous Approach (ICD-10-PCS; principal; 2022-06-29)
PROC: 3E0337Z Introduction of Electrolytic and Water Balance Substance into Peripheral Vein, Percutaneous Approach (ICD-10-PCS; 2022-06-29)
DX: R56.9 Unspecified convulsions (principal); F19.10 Other psychoactive substance abuse, uncomplicated; F17.210 Nicotine dependence, cigarettes, uncomplicated
CPT/HCPCS: 36415; 76817-TC; 80053; 80177; 80307; 81003; 82550; 82553; 82962; 83605; 83735; 84702; 84703; 85025; 87086; 93005; 93010; 96360; 96372; 99285-25; C9803-CS; G0378; U0003; U0005

== ENCOUNTER 2022-11-12 13:31 | Emergency (ER) | payer OTHER ==
[2022-11-12 14:26] VITALS: BP 116/81; PULSE 80; RESP 19; TEMP 99.2; BMI 24.2
[2022-11-12] MEDS ORDERED: KETOROLAC TROMETHAMINE 30 MG/1 ML VIAL IM ONE (15:07)
[2022-11-12] MEDS ORDERED: KETOROLAC TROMETHAMINE 30 MG/1 ML VIAL ONE (15:55)
[2022-11-12 16:53] LABS: EPI CELLS 23 /uL (0-25.1); HYALINE CASTS 2 /uL (0-3.1); URINE APPEARANCE CLEAR; URINE BACTERIA 717 /uL (0-1359); URINE BILIRUBIN NEGATIVE (NEGATIVE); URINE COLOR DK YELLOW; URINE GLUCOSE (UA) NEGATIVE (NEGATIVE); URINE KETONE 1+ (NEGATIVE); URINE LEUK ESTERASE NEGATIVE (NEGATIVE); URINE NITRITE NEGATIVE (NEGATIVE); URINE PROTEIN 1+ (NEGATIVE)
[2022-11-12 17:15] LABS: URINE RBC 99 /uL (0-23.9); URINE WBC 134 /uL (0-25.8); YEAST NONE SEEN (NEGATIVE)
== END 2022-11-12 17:20 | disposition home or self-care (01) ==
LOC: JER 13:31
PROC: 3E0233Z Introduction of Anti-inflammatory into Muscle, Percutaneous Approach (ICD-10-PCS; principal; 2022-11-12)
DX: R06.02 Shortness of breath (principal); R05.9 Cough, unspecified; R07.0 Pain in throat; J09.X2 Influenza due to identified novel influenza A virus with other respiratory manifestations; R50.9 Fever, unspecified; R51.9 Headache, unspecified; R19.7 Diarrhea, unspecified; Z20.822 Contact with and (suspected) exposure to COVID-19
CPT/HCPCS: 0241U-QW; 71046-TC-FY; 81003; 84703; 87086; 99284-25

== ENCOUNTER 2023-02-18 17:15 | Emergency (ER) | payer OTHER ==
[2023-02-18 17:32] VITALS: BP 100/61; PULSE 72; RESP 16; TEMP 97.9; BMI 24.2
[2023-02-18 17:40] LABS: HCG,QUALITATIVE URINE Negative
[2023-02-18] MEDS ORDERED: PHENAZOPYRIDINE HCL 100 MG TABLET (FP) PO ONE (17:52)
[2023-02-18] MEDS ORDERED: CEPHALEXIN MONOHYDRATE 500 MG CAPSULE (UD) PO ONE (17:52)
[2023-02-18] MEDS ORDERED: PHENAZOPYRIDINE HCL 100 MG TABLET (FP) ONE (17:55)
[2023-02-18] MEDS ORDERED: CEPHALEXIN MONOHYDRATE 500 MG CAPSULE (UD) ONE (17:55)
== END 2023-02-18 18:07 | disposition home or self-care (01) ==
LOC: FER 17:15
DX: N39.0 Urinary tract infection, site not specified (principal); R35.0 Frequency of micturition; R30.0 Dysuria
CPT/HCPCS: 81003; 81015; 84703; 87086; 99283-25

== ENCOUNTER 2023-08-19 16:40 | Emergency (ER) | payer OTHER ==
[2023-08-19 17:05] VITALS: BP 104/68; PULSE 80; RESP 16; TEMP 98.1; BMI 24.2
[2023-08-19] MEDS ORDERED: METHOCARBAMOL 500 MG TABLET ONE (17:49)
[2023-08-19] MEDS: METHOCARBAMOL 500 MG TABLET PO ONE (17:51)
== END 2023-08-19 18:00 | disposition home or self-care (01) ==
LOC: FER 16:40
DX: R51.9 Headache, unspecified (principal); R22.0 Localized swelling, mass and lump, head; M26.609 Unspecified temporomandibular joint disorder, unspecified side
CPT/HCPCS: 99283-25

== ENCOUNTER 2024-02-24 17:36 | Emergency (ER) | payer OTHER ==
[2024-02-24 18:03] VITALS: BP 123/86; PULSE 87; RESP 18; TEMP 98; BMI 22.6
[2024-02-24] MEDS ORDERED: LIDOCAINE HCL 2% (20ML MULTI-DOSE VIAL) ONE (18:12)
[2024-02-24] MEDS: LIDOCAINE HCL 2% (50ML VIAL) INF ONE (18:31)
== END 2024-02-24 18:55 | disposition home or self-care (01) ==
LOC: FER 17:36
PROC: 0U9MXZZ Drainage of Vulva, External Approach (ICD-10-PCS; principal; 2024-02-24)
DX: L02.215 Cutaneous abscess of perineum (principal)
CPT/HCPCS: 56405; 99283-25